=== PATIENT | female | born 1955 | race African-American/Black ===

== ENCOUNTER 2016-04-27 21:34 | Emergency (ER) | payer OTHER ==
[~2016-04-27] VITALS: Ht 167.6 cm; Wt 77.3 kg
[~2016-04-27 21:34] MED LIST: ASPIR-LOW81 MG PO; CALCIUM CITRAT200 MG PO; COLACE100 MG PO; CYMBALTA60 MG PO; FOLIC ACID; LORTAB 5/500 501 TAB PO; METHOTREXA2.5 MG/TAB PO; METHOTREXA50 MG/2 ML IM; NORCO 325 MG-51 TAB PO; PEPCID 20MG TAB20 MG PO; PHENERGAN 25 TA25 MG PO; PLAQUENIL; TIAZAC360 MG PO; ZESTRIL; ZESTRIL 10MG10 MG PO
[2016-04-27 21:36] VITALS: BP 156/108; TEMP 98.1
[2016-04-27 22:16] LABS: BASO % 0.2 % (0.0-2.0); EOS # 0.1 (0.0-0.7); EOS % 0.4 % (0-4.0); GRAN # 9.6 (1.4-6.5); GRAN % 80.3 % (42.2-75.2); HEMATOCRIT 37.8 % (37.0-47.0); HEMOGLOBIN 13.6 g/dl (12.5-16.0); LYMPH # 1.5 (1.2-3.4); LYMPH % 12.5 % (20.0-51.0); MEAN CELL VOLUME 85 fl (80.0-100.0); MEAN CORPUSCULAR HEMOGLOBIN 31 pg (27.0-31.0); MEAN CORPUSCULAR HGB CONC 36 g/dl (33.0-37.0); MEAN PLATELET VOLUME 9.7 fl (7.4-10.4); MONO # 0.8 (0.1-0.6); MONO % 6.3 % (1.7-9.3); PLATELET COUNT 227 K/mm3 (130-400); RED BLOOD COUNT 4.44 M/mm3 (4.10-5.30); REDCELL DISTRIBUTION WIDTH-CV 14.4 % (11.5-14.5); WHITE BLOOD COUNT 11.9 K/mm3 (4.8-10.8)
[2016-04-27 22:26] LABS: ADJUSTED CALCIUM 9.6 mg/dL (8.4-10.2); ALANINE AMINOTRANSFERASE 34 U/L (9-52); ALBUMIN 4.6 gm/dL (3.5-5.0); ALKALINE PHOSPHATASE 77 U/L (50-136); ANION GAP 12 mmol/L (7-16); BILIRUBIN,TOTAL 0.9 mg/dL (0.0-1.0); BLOOD UREA NITROGEN 16 mg/dL (7-17); CALCIUM 10.1 mg/dL (8.4-10.2); CARBON DIOXIDE 26 mmol/L (22-30); CHLORIDE 103 mmol/L (98-107); CREATININE, serum 0.84 mg/dL (0.52-1.25); GLUCOSE 143 mg/dL (74-106); LIPASE 87 U/L (23-300); POTASSIUM 4.2 mmol/L (3.4-5.0); SODIUM 141 mmol/L (137-145); TOTAL PROTEIN 9.4 gm/dL (6.4-8.2)
[2016-04-27 22:35] LABS: PH 5 (5-8); SQUAMOUS EPITHELIAL None Seen /hpf; URINE APPEARANCE Hazy; URINE BACTERIA None Seen /hpf; URINE BILIRUBIN Negative (NEGATIVE); URINE BLOOD Negative (NEGATIVE); URINE COLOR Yellow; URINE GLUCOSE Negative (NEGATIVE); URINE KETONE Trace (NEGATIVE); URINE RBC 0-2 /hpf; URINE UROBILINOGEN Negative (NEGATIVE); URINE WBC 0-2 /hpf
[2016-04-27 22:38] LABS: TROPONIN-I < 0.012 ng/mL (0.000-0.034)
[2016-04-28] MEDS ORDERED: PHENERGAN 25 TA25 MG PO (00:18)
[2016-04-28 00:33] VITALS: PULSE 82
== END 2016-04-28 00:34 | disposition home or self-care (01) ==
LOC: COL.ER 21:34
PROVIDERS: Physician Assistant
DX: K52.9 Noninfective gastroenteritis and colitis, unspecified (principal)
CPT/HCPCS: J2270; J2550; J7030; Q9967

== ENCOUNTER 2016-08-09 06:44 | Emergency (ER) | payer OTHER ==
[~2016-08-09] VITALS: Ht 167.6 cm; Wt 74.5 kg
[2016-08-09 06:46] VITALS: PULSE 93; TEMP 98
[2016-08-09] MEDS ORDERED: MULTIVITAMIN1 CTB PO (06:51)
[2016-08-09] MEDS ORDERED: VITAMIN D1000 IU PO (06:51)
[2016-08-09 07:46] LABS: BASO % 0.1 % (0.0-2.0); EOS % 0.3 % (0-4.0); GRAN # 4.4 (1.4-6.5); GRAN % 65.4 % (42.2-75.2); HEMOGLOBIN 12.3 g/dl (12.5-16.0); LYMPH # 1.7 (1.2-3.4); LYMPH % 25.9 % (20.0-51.0); MEAN CELL VOLUME 84 fl (80.0-100.0); MEAN CORPUSCULAR HEMOGLOBIN 31 pg (27.0-31.0); MEAN CORPUSCULAR HGB CONC 36 g/dl (33.0-37.0); MEAN PLATELET VOLUME 10.2 fl (7.4-10.4); MONO # 0.5 (0.1-0.6); PLATELET COUNT 224 K/mm3 (130-400); RED BLOOD COUNT 4.03 M/mm3 (4.10-5.30); REDCELL DISTRIBUTION WIDTH-CV 15.3 % (11.5-14.5); WHITE BLOOD COUNT 6.7 K/mm3 (4.8-10.8)
[2016-08-09 07:50] LABS: PH 5 (5-8); SQUAMOUS EPITHELIAL 0-2 /hpf; URINE APPEARANCE Hazy; URINE BACTERIA None Seen /hpf; URINE BILIRUBIN Negative (NEGATIVE); URINE BLOOD Negative (NEGATIVE); URINE COLOR Yellow; URINE GLUCOSE Negative (NEGATIVE); URINE KETONE Trace (NEGATIVE); URINE RBC 0-2 /hpf; URINE UROBILINOGEN Negative (NEGATIVE)
[2016-08-09 08:04] LABS: ADJUSTED CALCIUM 9.7 mg/dL (8.4-10.2); ALANINE AMINOTRANSFERASE 27 U/L (9-52); ALBUMIN 4.6 gm/dL (3.5-5.0); ALKALINE PHOSPHATASE 74 U/L (50-136); ANION GAP 14 mmol/L (7-16); BLOOD UREA NITROGEN 12 mg/dL (7-17); C-REACTIVE PROTEIN 0.8 mg/dL (0.0-0.9); CALCIUM 10.2 mg/dL (8.4-10.2); CARBON DIOXIDE 27 mmol/L (22-30); CHLORIDE 102 mmol/L (98-107); CREATININE, serum 0.75 mg/dL (0.52-1.25); GLUCOSE 100 mg/dL (74-106); LIPASE 78 U/L (23-300); SODIUM 143 mmol/L (137-145)
[2016-08-09 08:13] LABS: TROPONIN-I < 0.012 ng/mL (0.000-0.034)
[2016-08-09] MEDS ORDERED: ZOFRAN ODT4 MG PO (10:06)
[2016-08-09] MEDS ORDERED: PHENERGAN 25 TA25 MG PO (10:06)
[2016-08-09 10:33] VITALS: BP 137/90
== END 2016-08-09 10:34 | disposition home or self-care (01) ==
LOC: COL.ER 06:44
PROVIDERS: Emergency Medicine
DX: K52.9 Noninfective gastroenteritis and colitis, unspecified (principal); I10 Essential (primary) hypertension
CPT/HCPCS: J2405; J2550; J3010; J7030; Q9967

== ENCOUNTER 2017-05-20 15:42 | Emergency (ER) | payer OTHER ==
[~2017-05-20] VITALS: Ht 167.6 cm; Wt 81.8 kg
[~2017-05-20 15:42] MED LIST changes: +MULTIVITAMIN1 CTB PO; +VITAMIN D1000 IU PO; +ZOFRAN ODT4 MG PO
[2017-05-20 15:45] VITALS: TEMP 98.7
[2017-05-20 17:26] LABS: ALANINE AMINOTRANSFERASE 36 U/L (9-52); ALBUMIN 4.5 gm/dL (3.5-5.0); ALKALINE PHOSPHATASE 82 U/L (50-136); ANION GAP 8 mmol/L (7-16); AST,SGOT 29 U/L (15-37); BILIRUBIN,TOTAL 0.3 mg/dL (0.0-1.0); BLOOD UREA NITROGEN 11 mg/dL (7-17); C-REACTIVE PROTEIN 0.9 mg/dL (0.0-0.9); CALCIUM 9.9 mg/dL (8.4-10.2); CARBON DIOXIDE 29 mmol/L (22-30); CHLORIDE 104 mmol/L (98-107); GLUCOSE 86 mg/dL (74-106); LIPASE 142 U/L (23-300); POTASSIUM 3.8 mmol/L (3.4-5.0); SODIUM 141 mmol/L (137-145); TOTAL PROTEIN 8.9 gm/dL (6.4-8.2)
[2017-05-20 17:37] LABS: TROPONIN-I < 0.012 ng/mL (0.000-0.034)
[2017-05-20 18:00] VITALS: BP 137/88
[2017-05-20 18:09] LABS: BASO % 0.2 % (0.0-2.0); EOS # 0.1 (0.0-0.7); EOS % 1.1 % (0-4.0); GRAN # 4.1 (1.4-6.5); GRAN % 63.8 % (42.2-75.2); LYMPH # 1.6 (1.2-3.4); LYMPH % 24.9 % (20.0-51.0); MEAN CELL VOLUME 86 fl (80.0-100.0); MEAN CORPUSCULAR HGB CONC 36 g/dl (33.0-37.0); MEAN PLATELET VOLUME 10.2 fl (7.4-10.4); MONO # 0.6 (0.1-0.6); MONO % 9.5 % (1.7-9.3); PLATELET COUNT 204 K/mm3 (130-400); RED BLOOD COUNT 3.73 M/mm3 (4.10-5.30); REDCELL DISTRIBUTION WIDTH-CV 15.1 % (11.5-14.5)
[2017-05-20 18:10] LABS: HEMATOCRIT 31.9 % (37.0-47.0); HEMOGLOBIN 11.4 g/dl (12.5-16.0); MEAN CORPUSCULAR HEMOGLOBIN 31 pg (27.0-31.0)
[2017-05-20 20:27] VITALS: PULSE 91
== END 2017-05-20 20:31 | disposition home or self-care (01) ==
LOC: COL.ER 15:42
PROVIDERS: Emergency Medicine
DX: J40 Bronchitis, not specified as acute or chronic (principal); I10 Essential (primary) hypertension; K21.9 Gastro-esophageal reflux disease without esophagitis; Z87.39 Personal history of other diseases of the musculoskeletal system and connective tissue
CPT/HCPCS: J7050; Q9967

== ENCOUNTER → 2017-08-06 | Outpatient (CLI) | payer OTHER | LOC: COL.RAD 09:27 | DX: D47.2 Monoclonal gammopathy (principal) ==

== ENCOUNTER 2017-09-30 22:02 | Emergency (ER) | payer OTHER ==
[~2017-09-30] VITALS: Ht 167.6 cm; Wt 77.3 kg
[2017-09-30 22:14] VITALS: TEMP 98.5
[2017-09-30] MEDS ORDERED: ZYRTEC 10MG10 MG PO (23:49)
[2017-09-30] MEDS ORDERED: FOLIC ACID0.4 MG PO (23:50)
[2017-09-30] MEDS ORDERED: PRAVACHOL80 MG PO (23:50)
[2017-10-01 00:36] LABS: BASO % 0.1 % (0.0-2.0); EOS % 0.1 % (0-4.0); GRAN # 7.8 (1.4-6.5); GRAN % 82.1 % (42.2-75.2); HEMATOCRIT 34.6 % (37.0-47.0); HEMOGLOBIN 12.8 g/dl (12.5-16.0); LYMPH % 10.5 % (20.0-51.0); MEAN CELL VOLUME 85 fl (80.0-100.0); MEAN CORPUSCULAR HEMOGLOBIN 31 pg (27.0-31.0); MEAN CORPUSCULAR HGB CONC 37 g/dl (33.0-37.0); MEAN PLATELET VOLUME 9.4 fl (7.4-10.4); MONO # 0.7 (0.1-0.6); PLATELET COUNT 175 K/mm3 (130-400); RED BLOOD COUNT 4.07 M/mm3 (4.10-5.30); REDCELL DISTRIBUTION WIDTH-CV 15.5 % (11.5-14.5)
[2017-10-01 00:48] LABS: ALBUMIN 4.2 gm/dL (3.5-5.0); BILIRUBIN,TOTAL 0.4 mg/dL (0.0-1.0); C-REACTIVE PROTEIN 0.6 mg/dL (0.0-0.9); CALCIUM 9.5 mg/dL (8.4-10.2); CREATININE, serum 0.75 mg/dL (0.52-1.25); POTASSIUM 3.9 mmol/L (3.4-5.0); TOTAL PROTEIN 9.4 gm/dL (6.4-8.2)
[2017-10-01] MEDS ORDERED: FLAGYL500 MG PO (02:09)
[2017-10-01] MEDS ORDERED: NORCO 325 MG-51 TAB PO (02:09)
[2017-10-01] MEDS ORDERED: CIPRO 500MG TA500 MG PO (02:09)
[2017-10-01] MEDS ORDERED: ZOFRAN 4MG T4 MG/TAB PO (02:09)
[2017-10-01 03:32] VITALS: BP 118/70; PULSE 79
== END 2017-10-01 03:34 | disposition home or self-care (01) ==
LOC: COL.ER 22:02
PROVIDERS: Emergency Medicine
DX: K52.9 Noninfective gastroenteritis and colitis, unspecified (principal); Z90.49 Acquired absence of other specified parts of digestive tract
CPT/HCPCS: J1170; J2550

== ENCOUNTER 2018-02-09 17:45 | Emergency (ER) | payer OTHER ==
[~2018-02-09] VITALS: Ht 167.6 cm; Wt 85.9 kg
[~2018-02-09 17:45] MED LIST changes: +CIPRO 500MG TA500 MG PO; +FLAGYL500 MG PO; +FOLIC ACID0.4 MG PO; +PRAVACHOL80 MG PO; +ZOFRAN 4MG T4 MG/TAB PO; +ZYRTEC 10MG10 MG PO
[2018-02-09 17:52] VITALS: TEMP 98.6
[2018-02-09 18:18] LABS: COLLECTION METHOD CLEAN CATCH
[2018-02-09 18:25] LABS: MUCOUS Present /lpf; PH 7 (5-8); URINE APPEARANCE Clear; URINE BACTERIA None Seen /hpf; URINE BILIRUBIN Negative (NEGATIVE); URINE BLOOD Negative (NEGATIVE); URINE COLOR Yellow; URINE GLUCOSE Negative (NEGATIVE); URINE KETONE Negative (NEGATIVE); URINE LEUKOCYTE ESTERASE Negative (NEGATIVE); URINE NITRATE Negative (NEGATIVE); URINE PROTEIN(semi-quant) 1+ (NEGATIVE); URINE RBC 0-2 /hpf; URINE UROBILINOGEN >=4.0 mg/dL (NEGATIVE)
[2018-02-09 18:40] LABS: BASO % 0.1 % (0.0-2.0); EOS % 0.6 % (0-4.0); GRAN # 4.2 (1.4-6.5); GRAN % 63.1 % (42.2-75.2); HEMATOCRIT 33.6 % (37.0-47.0); LYMPH # 1.5 (1.2-3.4); LYMPH % 22.7 % (20.0-51.0); MEAN CELL VOLUME 86 fl (80.0-100.0); MEAN CORPUSCULAR HEMOGLOBIN 31 pg (27.0-31.0); MEAN CORPUSCULAR HGB CONC 36 g/dl (33.0-37.0); MONO # 0.9 (0.1-0.6); MONO % 13.2 % (1.7-9.3); PLATELET COUNT 172 K/mm3 (130-400); RED BLOOD COUNT 3.91 M/mm3 (4.10-5.30)
[2018-02-09 18:51] LABS: ALBUMIN 4.4 gm/dL (3.5-5.0); BILIRUBIN,TOTAL 0.4 mg/dL (0.0-1.0); C-REACTIVE PROTEIN 0.7 mg/dL (0.0-0.9); CALCIUM 9.6 mg/dL (8.4-10.2); CREATININE, serum 0.76 mg/dL (0.52-1.25); POTASSIUM 3.9 mmol/L (3.4-5.0); TOTAL PROTEIN 8.7 gm/dL (6.4-8.2)
[2018-02-09] MEDS ORDERED: TUSS PO (19:13)
[2018-02-09 19:23] VITALS: BP 137/91; PULSE 88
== END 2018-02-09 19:25 | disposition home or self-care (01) ==
LOC: COL.ER 17:45
PROVIDERS: Physician Assistant
DX: R10.31 Right lower quadrant pain (principal); R05 Cough; I10 Essential (primary) hypertension; E78.5 Hyperlipidemia, unspecified; Z87.2 Personal history of diseases of the skin and subcutaneous tissue
CPT/HCPCS: J2405; J3010

== ENCOUNTER → 2018-07-13 | Outpatient (CLI) | payer OTHER ==
[~2018-07-13] MED LIST changes: +TUSS PO
== END ==
LOC: COL.RAD 14:49
DX: I10 Essential (primary) hypertension (principal)

== ENCOUNTER 2019-02-14 08:11 | Inpatient (IN) | payer OTHER ==
[2019-02-14] VITALS (84 sets, daily range): BP systolic 99–114; BP diastolic 49–76; PULSE 90–120; TEMP 98.3–99.9; O2SAT 78–100
[~2019-02-14] VITALS: Ht 167.6 cm; Wt 73.7 kg
[2019-02-14 08:38] LABS: BASO % 0.2 % (0.0-2.0); EOS # 0.1 (0.0-0.7); EOS % 1.1 % (0-4.0); GRAN # 3.4 (1.4-6.5); GRAN % 72.7 % (42.2-75.2); LYMPH % 21.1 % (20.0-51.0); MEAN CELL VOLUME 90 fl (80.0-100.0); MEAN CORPUSCULAR HGB CONC 36 g/dl (33.0-37.0); MEAN PLATELET VOLUME 10.5 fl (7.4-10.4); MONO # 0.2 (0.1-0.6); MONO % 4.5 % (1.7-9.3); PLATELET COUNT 127 K/mm3 (130-400); RED BLOOD COUNT 2.86 M/mm3 (4.10-5.30); REDCELL DISTRIBUTION WIDTH-CV 15.1 % (11.5-14.5)
[2019-02-14 08:42] LABS: HEMATOCRIT 25.7 % (37.0-47.0); HEMOGLOBIN 9.2 g/dl (12.5-16.0); MEAN CORPUSCULAR HEMOGLOBIN 32 pg (27.0-31.0)
[2019-02-14 08:49] LABS: ALANINE AMINOTRANSFERASE 25 U/L (9-52); ALBUMIN 4.4 gm/dL (3.5-5.0); ALKALINE PHOSPHATASE 63 U/L (50-136); ANION GAP 9 mmol/L (7-16); AST,SGOT 53 U/L (15-37); BILIRUBIN,TOTAL 0.3 mg/dL (0.0-1.0); BLOOD UREA NITROGEN 49 mg/dL (7-17); CALCIUM 9.8 mg/dL (8.4-10.2); CARBON DIOXIDE 26 mmol/L (22-30); CHLORIDE 101 mmol/L (98-107); CREATININE, serum 2.22 (0.52-1.25); GLUCOSE 55 mg/dL (74-106); POTASSIUM 4.2 mmol/L (3.4-5.0); SODIUM 137 mmol/L (137-145); TOTAL PROTEIN 8.6 gm/dL (6.4-8.2)
[2019-02-14] MEDS ORDERED: ZOVIRAX400 MG PO (08:58)
[2019-02-14] MEDS ORDERED: ASPIRIN 81M81 MG/TA2 PO (08:59)
[2019-02-14 09:00] LABS: TROPONIN-I < 0.012 ng/mL (0.000-0.035)
[2019-02-14] MEDS ORDERED: DECADRON 4MG TAB4 MG PO (09:00)
[2019-02-14] MEDS ORDERED: REVLIMID25 MG PO (09:01)
[2019-02-14] MEDS ORDERED: CALCIUM 600-D 61 TAB PO (09:02)
[2019-02-14] MEDS ORDERED: ZYLOPRIM 300MG300 MG PO (09:02)
[2019-02-14] MEDS ORDERED: TESSALON P100 MG/CAP PO (09:05)
[2019-02-14] MEDS ORDERED: ZYRTEC 10MG10 MG PO (09:05)
[2019-02-14] MEDS ORDERED: FERROUS SULFATE PO (09:07)
[2019-02-14 09:18] LABS: COLLECTION METHOD CLEAN CATCH
[2019-02-14 09:40] LABS: MUCOUS Present /lpf; PH 5 (5-8); URINE APPEARANCE Clear; URINE BACTERIA Rare /hpf; URINE BILIRUBIN Negative (NEGATIVE); URINE BLOOD Negative (NEGATIVE); URINE COLOR Yellow; URINE GLUCOSE Negative (NEGATIVE); URINE KETONE Negative (NEGATIVE); URINE LEUKOCYTE ESTERASE 1+ (NEGATIVE); URINE NITRATE Negative (NEGATIVE); URINE PROTEIN(semi-quant) Negative (NEGATIVE); URINE UROBILINOGEN Negative (NEGATIVE)
--- NOTE | 2019-02-14 12:36 | NUR ---
Pt up to room 317, 5 page, med rec, allergies and pharmacy completed. Pt laying in bed with at bedside. Pt A&O, lung sounds clear, heart RRR, bowel sounds present, pulses strong bilaterally. Pt denies SOB, is on room air, denies N/V/D, chest pain palpitations. Pt states she has some dizziness. Pt denies pain "worth complaining about". Pt started chemo 02/10/19 and today is the first day she "didn't feel good". Pt ambulatory in room. No other concerns voiced at this time.
--- NOTE | 2019-02-14 15:12 | NUR ---
Pt ordered for Glucose check now, this nurse checking BS as JAREN Elias was walking in for assessment. BS resulted 25. Pt is A&O, talking w/ staff. JAREN Elias grabbed juice and crackers. Pt drank 3 juices. BS rechecked 3 more times, resulting 12, LO (too low to read), and LO. Verbal order D50 syringe ordered, administered 25 ml, BS rechecked 43. Stat blood order for glucose check ordered. Pt getting labs drawn at this time. Will recheck blood sugar in 15 min. Pt has appeared asymptomatic. Discussed POC w/ JAREN Elias.
--- NOTE | 2019-02-14 15:35 | NUR ---
BS rechecked, resulting 46. D5 fluids started at 50ml/hr. Pt sitting in bed, eating, A&O, having conversation w/ staff.
--- NOTE | 2019-02-14 16:08 | NUR ---
Pt BS rechecked, 57. Pt has had 5 juices, turkey sandwich, fruit. IVF running w/ no complications. JAREN Elias updated on pt condition. Will recheck BS in 30 min.
--- NOTE | 2019-02-14 16:52 | NUR ---
Pt BS checked, resulting 50, D5 running at 50ml/hr. JAREN Elias notified. Will consult w/ Hospitalist on POC.
--- NOTE | 2019-02-14 18:20 | NUR ---
182: PT ARRIVIED TO ICU RM 2. 183: PT BS 46 - FOLLOWING HYPOGYCEMIC PROTOCOL 1831: REPORT RECEIVED FROM MADELINE CONNOR 1837: PT STATES SHE IS NOT HUNGRY, BUT RATHER FULL. PT STATES SHE WILL TRY TO EAT SOME MORE FOOD.
--- NOTE | 2019-02-14 18:31 | NUR ---
Pt being transferred to [facility] room 2. Escorted via bed by MADELINE Hui. Report called to MADELINE Dey. D10 at 50 ml/hr started prior to departure in [facility].
--- NOTE | 2019-02-14 18:31 | NUR ---
1831: BS 46 INITIATED HYPOGLYCEMIC PROTOCOL PT ADMINISTERED D50
--- NOTE | 2019-02-14 19:10 | NUR ---
BEDSIDE REPORT GIVEN TO MADELINE WILLIS.
--- NOTE | 2019-02-14 21:51 | NUR ---
Patient resting in bed; accu check 120. Denies any pain, dizziness. or shortness of breath. Only reports feeling "tired". Ambulated to bathroom with standby assist only. No concerns at this time; will continue to monitor.
--- NOTE | 2019-02-14 22:00 | NUR ---
Temp noted to be 101.0 . Notified hospitalist and new orders received; see EMAR.
[2019-02-15] VITALS (89 sets, daily range): BP systolic 85–112; BP diastolic 51–82; PULSE 81–110; TEMP 97.7–100.5; O2SAT 99–100
--- NOTE | 2019-02-15 00:45 | NUR ---
Resting in bed with eyes shut; no complaints at this time.
--- NOTE | 2019-02-15 04:07 | NUR ---
0250: Patient received from ICu. A/O x 4. No complaints or concerns. Denies pain or discomfort. See flowsheet for fvs obtained with hypotension and tachycardia. blood glucose 123. Patient Denies feeling dizzy, lightheaded, or weak. States "I don't really even feel sick". Skin warm and moist to touch. Telemetry indicates sinus tachycardia. Chart reviewed. Rocephin given for suspected UTI. urine and blood cultures pending. Kari GARDINER notified. Orders received for NS 1000ml bolus over 1 hr. to continue Dextrose infusion during bolus. Patient updated on plan of care and reason, agrees with plan of care and has no questions or concerns after discussion.
--- NOTE | 2019-02-15 04:15 | NUR ---
0405: Kari Nesbitt WAFER FABRICATION TECHNICIAN notified of blood glucose and FVS obtained at this time. No new orders received. To continue to monitor and finish NS bolus.
[2019-02-15] MEDS ORDERED: ZOFRAN8 MG PO (06:43)
[2019-02-15 07:29] LABS: MEAN CELL VOLUME 91 fl (80.0-100.0); MEAN CORPUSCULAR HGB CONC 36 g/dl (33.0-37.0); MEAN PLATELET VOLUME 10.9 fl (7.4-10.4); PLATELET COUNT 97 K/mm3 (130-400); RED BLOOD COUNT 2.66 M/mm3 (4.10-5.30); REDCELL DISTRIBUTION WIDTH-CV 15.6 % (11.5-14.5)
[2019-02-15 07:30] LABS: HEMATOCRIT 24.3 % (37.0-47.0); HEMOGLOBIN 8.7 g/dl (12.5-16.0); MEAN CORPUSCULAR HEMOGLOBIN 33 pg (27.0-31.0)
[2019-02-15 07:57] LABS: ALANINE AMINOTRANSFERASE 22 U/L (9-52); ALBUMIN 3.5 gm/dL (3.5-5.0); ALKALINE PHOSPHATASE 54 U/L (50-136); ANION GAP 5 mmol/L (7-16); AST,SGOT 23 U/L (15-37); BILIRUBIN,TOTAL 0.1 mg/dL (0.0-1.0); BLOOD UREA NITROGEN 20 mg/dL (7-17); CALCIUM 8.9 mg/dL (8.4-10.2); CARBON DIOXIDE 26 mmol/L (22-30); CHLORIDE 109 mmol/L (98-107); CREATININE, serum 1.13 (0.52-1.25); GLUCOSE 127 mg/dL (74-106); POTASSIUM 4.1 mmol/L (3.4-5.0); SODIUM 140 mmol/L (137-145); TOTAL PROTEIN 7.3 gm/dL (6.4-8.2)
[2019-02-15 08:06] LABS: TROPONIN-I < 0.012 ng/mL (0.000-0.035)
--- NOTE | 2019-02-15 09:09 | NUR ---
SW met with the patient to discuss discharge plan. The patient lives in [place] with her , Neel (ph#[phone]). She reports independence with ADLs and does not have any DME. The patient's PCP is Dr. Baires at [facility] and she also receives her medications at [facility]. She reports no difficulties obtaining her meds. The patient does not have advanced directives in EMR, but she states that she does have them completed and at home. She states her DPOA-HC is her . The patient plans to return home with her upon discharge. No additional needs at this time, but SW to continue to follow.
[2019-02-15 09:40] LABS: BAND 1 % (0-10); NEUTROPHILS 49 % (42.0-75.2)
[2019-02-15 09:41] LABS: PLATELET ESTIMATE DECREASED (NORMAL); TARGET CELLS 2+
[2019-02-15 09:43] LABS: ANISOCYTOSIS 1+; POIKILOCYTOSIS 1+
[2019-02-15 10:14] LABS: LYMPHOCYTE 43 % (20.0-51.0)
--- NOTE | 2019-02-15 12:01 | NUR ---
Initial visit; Patient thanked Flight Manager for looking in on her and keeping her in Flight Manager's prayers.
[2019-02-16 00:01] VITALS: BP 111/65; PULSE 89; TEMP 98.4
[2019-02-16 01:51] LABS: C-PEPTIDE,SERUM 6.68 ng/mL (0.80-3.90)
[2019-02-16 04:01] VITALS: BP 111/67; PULSE 100; TEMP 98.2
[2019-02-16 07:02] LABS: MEAN CELL VOLUME 92 fl (80.0-100.0); MEAN CORPUSCULAR HGB CONC 35 g/dl (33.0-37.0); MEAN PLATELET VOLUME 11.5 fl (7.4-10.4); PLATELET COUNT 81 K/mm3 (130-400); RED BLOOD COUNT 2.57 M/mm3 (4.10-5.30); REDCELL DISTRIBUTION WIDTH-CV 15.8 % (11.5-14.5)
[2019-02-16 07:08] LABS: CALCIUM 9.1 mg/dL (8.4-10.2); CREATININE, serum 1.06 (0.52-1.25); POTASSIUM 4.5 mmol/L (3.4-5.0)
[2019-02-16 07:09] LABS: HEMATOCRIT 23.6 % (37.0-47.0); HEMOGLOBIN 8.3 g/dl (12.5-16.0); MEAN CORPUSCULAR HEMOGLOBIN 32 pg (27.0-31.0)
[2019-02-16 07:49] VITALS: BP 125/78; PULSE 81; TEMP 97.8
[2019-02-16 07:53] LABS: EOSINOPHIL 4 % (0-4); HYPOCHROMIA 2+; LYMPHOCYTE 35 % (20.0-51.0); NEUTROPHILS 60 % (42.0-75.2); PLATELET ESTIMATE DECREASED (NORMAL); SCHISTOCYTES 1+; TARGET CELLS 1+
[2019-02-16 08:01] LABS: PATHOLOGY DIFF REVIEW OK
--- NOTE | 2019-02-16 09:00 | NUR ---
IV SITE LOST THIS AM, WAS LEAKING. IV REMOVED WITHOUT ISSUE. WILL INQUIRE ABOUT THE NEED TO RESTART IV PRIOR TO ATTEMPTING.
[2019-02-16 11:08] VITALS: BP 122/72; PULSE 89; TEMP 97.9
[2019-02-16] MEDS ORDERED: OMNICEF 300MG300 MG PO (11:10)
[2019-02-16] MEDS ORDERED: GLUCOSE TEST ST1 DEV MC (11:12)
[2019-02-16] MEDS ORDERED: FREESTYLE PREC1 EAC5 MC (11:12)
--- NOTE | 2019-02-16 13:00 | NUR ---
PT DISCHARGE EDUCATION WAS PROVIDED. PT RECIEVED HOME MEDS FROM PHARMACY. TELE REMOVED. STATED THAT SHE WAS WAITING TO HEAR BACK FROM TO TAKE HER HOME, INFORMED PT THAT SHE COULD STAY IN ROOM AND WAIT THAT WOULD BE FINE AND THAT SHE DIDNT NEED TO WAIT BY THE FRONT DOORS SHE THOUGHT. ALL QUESTIONS ADDRESSED THIS AM WITH PROVIDER AND GRADES 9 THRU 12 VISITING TEACHER.
--- NOTE | 2019-02-16 17:00 | NUR ---
PT WAS ESCORTED OUT OF FACILITY BY INVENTORY TAKER AT THIS TIME. WAS HERE TO PROVIDE A RIDE HOME.
== END 2019-02-16 17:00 | disposition home or self-care (01) | DRG 641 ==
LOC: COL.ER 08:11 → MEDICAL 09:37 → ICU 17:15 → MEDICAL 02-15 03:44
PROVIDERS: Physician Assistant; ADMIT Student in an Organized Health Care Education/Training Program
DX: E16.2 Hypoglycemia, unspecified (principal); C90.00 Multiple myeloma not having achieved remission; N17.9 Acute kidney failure, unspecified; D61.818 Other pancytopenia; N39.0 Urinary tract infection, site not specified; M32.9 Systemic lupus erythematosus, unspecified; T45.1X5A Adverse effect of antineoplastic and immunosuppressive drugs, initial encounter; I95.9 Hypotension, unspecified; I10 Essential (primary) hypertension; E78.5 Hyperlipidemia, unspecified; D64.9 Anemia, unspecified; R05 Cough; R55 Syncope and collapse; Z79.82 Long term (current) use of aspirin; Z90.710 Acquired absence of both cervix and uterus; Z88.2 Allergy status to sulfonamides
CPT/HCPCS: 99223-AI; 99232-AI; 99239; A4216; J0696; J7030; J7070

== ENCOUNTER 2019-02-17 15:33 | Inpatient (IN) | payer OTHER ==
[~2019-02-17] VITALS: Ht 167.6 cm; Wt 73.9 kg
[~2019-02-17 15:33] MED LIST changes: +ASPIRIN 81M81 MG/TA2 PO; +CALCIUM 600-D 61 TAB PO; +DECADRON 4MG TAB4 MG PO; +FERROUS SULFATE PO; +FREESTYLE PREC1 EAC5 MC; +GLUCOSE TEST ST1 DEV MC; +OMNICEF 300MG300 MG PO; +REVLIMID25 MG PO; +TESSALON P100 MG/CAP PO; +ZOFRAN8 MG PO; +ZOVIRAX400 MG PO; +ZYLOPRIM 300MG300 MG PO
[2019-02-17 16:56] LABS: MEAN CELL VOLUME 91 fl (80.0-100.0); MEAN CORPUSCULAR HGB CONC 35 g/dl (33.0-37.0); MEAN PLATELET VOLUME 10.9 fl (7.4-10.4); PLATELET COUNT 81 K/mm3 (130-400); RED BLOOD COUNT 3.08 M/mm3 (4.10-5.30); REDCELL DISTRIBUTION WIDTH-CV 15.9 % (11.5-14.5)
[2019-02-17 17:01] LABS: ALBUMIN 4.6 gm/dL (3.5-5.0); BILIRUBIN,TOTAL 0.2 mg/dL (0.0-1.0); CALCIUM 10.3 mg/dL (8.4-10.2); CREATININE, serum 1.07 (0.52-1.25); POTASSIUM 4.5 mmol/L (3.4-5.0); TOTAL PROTEIN 9.2 gm/dL (6.4-8.2)
[2019-02-17 17:20] LABS: HEMOGLOBIN 9.9 g/dl (12.5-16.0); MEAN CORPUSCULAR HEMOGLOBIN 32 pg (27.0-31.0)
[2019-02-17 17:33] LABS: BAND 3 % (0-10); EOSINOPHIL 3 % (0-4); LYMPHOCYTE 13 % (20.0-51.0); METAMYELOCYTE 2 % (0-0); NEUTROPHILS 73 % (42.0-75.2); PLATELET ESTIMATE DECREASED (NORMAL)
[2019-02-17 17:34] LABS: ANISOCYTOSIS 1+; TARGET CELLS 2+
[2019-02-17 18:58] LABS: COLLECTION METHOD CLEAN CATCH
[2019-02-17 19:04] LABS: MUCOUS Present /lpf; PH 6 (5-8); URINE APPEARANCE Hazy; URINE BACTERIA None Seen /hpf; URINE BILIRUBIN Negative (NEGATIVE); URINE BLOOD Negative (NEGATIVE); URINE COLOR Yellow; URINE GLUCOSE Negative (NEGATIVE); URINE KETONE Negative (NEGATIVE); URINE LEUKOCYTE ESTERASE Trace (NEGATIVE); URINE NITRATE Negative (NEGATIVE); URINE PROTEIN(semi-quant) Negative (NEGATIVE); URINE RBC 0-2 /hpf; URINE UROBILINOGEN Negative (NEGATIVE)
[2019-02-17 21:01] LABS: INR 1.4 (0.8-3.0); PROTHROMBIN TIME 16.9 SECONDS (9.7-12.8)
[2019-02-17 21:05] LABS: SALICYLATE < 1.0 mg/dL
[2019-02-17 21:18] LABS: TROPONIN-I < 0.012 ng/mL (0.000-0.035)
[2019-02-17 21:37] VITALS: BP 124/60; PULSE 108; TEMP 99.5
--- NOTE | 2019-02-17 21:45 | NUR ---
Admitted to room 357 from ER with fever, productive cough- HX multiple myloma, temp at this time 99.5, Up in room , steady on feet- understands we need a stool specimen and a sputum specimen, went out to get her some food- Kari GARDINER here talking with patient- IV fluids of NS at 250cc/hr, tele on, denies pain-states has a low back ache but no pain,,
[2019-02-17 23:52] VITALS: BP 109/56; PULSE 107; TEMP 99.4
[2019-02-18 03:42] VITALS: BP 120/66; PULSE 108; TEMP 102.1
--- NOTE | 2019-02-18 06:31 | NUR ---
Did have temp of 102.1 during the night- Tylenol given,, coughing- cough medicine given. Iv fluids of NS at 150cc/hr.
[2019-02-18 06:54] LABS: MEAN CELL VOLUME 91 fl (80.0-100.0); MEAN CORPUSCULAR HGB CONC 35 g/dl (33.0-37.0); PLATELET COUNT 78 K/mm3 (130-400); RED BLOOD COUNT 2.45 M/mm3 (4.10-5.30)
[2019-02-18 07:08] LABS: HEMOGLOBIN 7.8 g/dl (12.5-16.0); MEAN CORPUSCULAR HEMOGLOBIN 32 pg (27.0-31.0)
[2019-02-18 07:09] LABS: HEMATOCRIT 22.3 % (37.0-47.0)
[2019-02-18 07:09] LABS: ALBUMIN 3.2 gm/dL (3.5-5.0); BILIRUBIN,TOTAL 0.2 mg/dL (0.0-1.0); CALCIUM 7.9 mg/dL (8.4-10.2); CREATININE, serum 1.04 (0.52-1.25); POTASSIUM 3.9 mmol/L (3.4-5.0); TOTAL PROTEIN 6.7 gm/dL (6.4-8.2)
[2019-02-18 08:08] VITALS: BP 98/59; PULSE 45; TEMP 98.2
[2019-02-18 08:57] LABS: BAND 13 % (0-10); EOSINOPHIL 4 % (0-4); LYMPHOCYTE 16 % (20.0-51.0); METAMYELOCYTE 1 % (0-0); NEUTROPHILS 53 % (42.0-75.2)
[2019-02-18 08:58] LABS: HYPOCHROMIA 2+; TARGET CELLS 1+
[2019-02-18 08:59] LABS: ANISOCYTOSIS 2+
--- NOTE | 2019-02-18 10:26 | NUR ---
Patient alert and oriented, answers questions appropriately. See assessment. Lungs decreased in bases, clear in upper lobes. Chronic cough noted, states now has yellow sputum, although unable to produce any for culture at this time. States feels well and expresses desire to discharge to home today. No other c/o at this time.
--- NOTE | 2019-02-18 11:26 | NUR ---
Plan to return home with Neel or guerline . SW met with patient about dc, patient reports that she is cold and has recieved several blankets. Patient rpoerts that her pcp is Dr. Baires of [facility], where she also obtained medications. Patient reports that her will transport her home. Patient denies needing in home supports. SW will continue to follow for supports.
[2019-02-18 13:21] VITALS: BP 123/72; PULSE 99; TEMP 102.8
[2019-02-18 16:00] VITALS: BP 113/66; PULSE 66; TEMP 101.4
[2019-02-18 19:21] VITALS: BP 113/68; PULSE 98; TEMP 102.2
--- NOTE | 2019-02-18 20:30 | NUR ---
Initial shift assessment done- has temp 102, up walking around room, ST on Tele, Tylenol given as ordered, states did just have a soft/loose stool, Back to bed-teady on feet, Iv fluids of NS at 75cc/hr
[2019-02-18 23:44] VITALS: BP 111/57; PULSE 98; TEMP 99.7
[2019-02-19] VITALS (8 sets, daily range): BP systolic 107–155; BP diastolic 57–87; PULSE 80–133; TEMP 99.2–102.9
--- NOTE | 2019-02-19 06:01 | NUR ---
Slept for a few hours- temp 102.2 early on this shift - now 100.0,, was given tylenol twice tonight- Had a total of 2 loose stools during the night, cough medicine given once-
[2019-02-19 07:14] LABS: MEAN CELL VOLUME 90 fl (80.0-100.0); MEAN CORPUSCULAR HGB CONC 35 g/dl (33.0-37.0); MEAN PLATELET VOLUME 11.8 fl (7.4-10.4); PLATELET COUNT 82 K/mm3 (130-400); RED BLOOD COUNT 2.63 M/mm3 (4.10-5.30); REDCELL DISTRIBUTION WIDTH-CV 15.9 % (11.5-14.5)
[2019-02-19 07:20] LABS: HEMATOCRIT 23.7 % (37.0-47.0); HEMOGLOBIN 8.4 g/dl (12.5-16.0); MEAN CORPUSCULAR HEMOGLOBIN 32 pg (27.0-31.0)
[2019-02-19 07:26] LABS: ALBUMIN 3.1 gm/dL (3.5-5.0); BILIRUBIN,TOTAL 0.3 mg/dL (0.0-1.0); CREATININE, serum 0.98 (0.52-1.25); TOTAL PROTEIN 6.8 gm/dL (6.4-8.2)
--- NOTE | 2019-02-19 08:00 | NUR ---
Patient resting in bed. A&O. Denies pain and discomfort. IV CDI, fluids infusing. VSS. Oral temperature 99.7, patient stating that she "feels cold" Will continue to monitor. No further needs expressed from patient. Call light withn reach
[2019-02-19 08:22] LABS: BAND 24 % (0-10); EOSINOPHIL 4 % (0-4); LYMPHOCYTE 12 % (20.0-51.0); NEUTROPHILS 55 % (42.0-75.2)
[2019-02-19 08:23] LABS: ANISOCYTOSIS 2+; HYPOCHROMIA 3+; PLATELET ESTIMATE DECREASED (NORMAL); TARGET CELLS 1+
--- NOTE | 2019-02-19 13:56 | NUR ---
RT CALLED FOR PRN TX. PT ANXIOUS, TACHYPNEIC AND COUGHING. C/O SHORTNESS OF BREATH. 2 LPM NC STARTED POST RT TX. PT ARRIVED HELPING TO CALM PT. PT STATED SHE FELT A LITTLE BETTER. RN TO GIVE ROBITUSSIN.
--- NOTE | 2019-02-19 18:12 | NUR ---
Patient resting in bed. A&O. Denies pain and discomfort. WBG WNL. VSS no reported SOB. IV CDI, fluids infusing. Temperature decreasing after tylenol. Will continue to monitor. Contact precautions in place. No further needs expressed from patient. Call light within reach
--- NOTE | 2019-02-19 19:53 | NUR ---
Pt resting in bed. No acute distress noted. Pt denies pain at this time. Respirations even and unlabored. Lungs clear to auscultation. Pt coughs periodically but denies any sputum.Telemetry in place. HR is elevated but Heart sounds are normal. Abdomen soft, nontender. BS+. Temperature is 99.8 at this time. A&O. R H IV site with IVF infusing.
--- NOTE | 2019-02-19 20:20 | NUR ---
Telemetry called d/t pts HR being elevated in the 140s. Upon assessment, pt is coughing. Vital signs are stable except HR of 130. Blood sugar checked- 68. Pt is receiving D5NS via IV and is eating dinner. Pt reports haivng liquid BM prior to the coughing.
--- NOTE | 2019-02-19 20:39 | NUR ---
Dr Franks called to report patients increased HR and decreased blood sugar. Orders received to get a EKG and continue with current IVF.
--- NOTE | 2019-02-19 21:49 | NUR ---
Pt updated provided to Dr. Felix. No new orders received.
--- NOTE | 2019-02-19 22:50 | NUR ---
Pts temperature is elevated again. PRN Tylenol given. CBG 160.
--- NOTE | 2019-02-19 23:40 | NUR ---
Pts R H IV site infiltrated. New IV site started in .
[2019-02-20] VITALS (478 sets, daily range): BP systolic 101–187; BP diastolic 47–127; PULSE 91–135; TEMP 97.4–103.8; O2SAT 35–100
--- NOTE | 2019-02-20 03:15 | NUR ---
Pt up to bathroom. BM x1-loose. Pt is dyspneic with exertion. Upon returning to bed, scattered expiratory wheezes auscultated throughout lung macias. VSS with exception of elevated HR-125.
--- NOTE | 2019-02-20 07:00 | NUR ---
Pt resting this AM. Pt did not sleep very much last night. She was up several times to bathroom and coughing frequently. Blood sugar is stable this AM. Edema to R hand has decreased since last night.
[2019-02-20 07:13] LABS: HEMATOCRIT 23.2 % (37.0-47.0); HEMOGLOBIN 8.4 g/dl (12.5-16.0); MEAN CELL VOLUME 90 fl (80.0-100.0); MEAN CORPUSCULAR HEMOGLOBIN 32 pg (27.0-31.0); MEAN CORPUSCULAR HGB CONC 36 g/dl (33.0-37.0); MEAN PLATELET VOLUME 12.6 fl (7.4-10.4); PLATELET COUNT 87 K/mm3 (130-400); RED BLOOD COUNT 2.59 M/mm3 (4.10-5.30); REDCELL DISTRIBUTION WIDTH-CV 15.9 % (11.5-14.5)
[2019-02-20 07:20] LABS: ALBUMIN 3.7 gm/dL (3.5-5.0); BILIRUBIN,TOTAL 0.5 mg/dL (0.0-1.0); CALCIUM 8.2 mg/dL (8.4-10.2); CREATININE, serum 0.89 (0.52-1.25); POTASSIUM 4.5 mmol/L (3.4-5.0); TOTAL PROTEIN 7.8 gm/dL (6.4-8.2)
[2019-02-20 08:14] LABS: BAND 22 % (0-10); EOSINOPHIL 1 % (0-4); HYPOCHROMIA 2+; LYMPHOCYTE 12 % (20.0-51.0); NEUTROPHILS 56 % (42.0-75.2); TARGET CELLS 1+
--- NOTE | 2019-02-20 08:34 | NUR ---
PT HAS DYSPNEA WHILE SPEAKING
--- NOTE | 2019-02-20 10:32 | NUR ---
SW attended clinical rounds with the team. Patient to transfer to the ICU.
[2019-02-20 11:01] LABS: ARTERIAL BLD GAS O2 SATURATION 90.9 % (92-100); ARTERIAL BLD GAS TCO2 CT 19.9; ARTERIAL BLOOD GAS BASE EXCESS -3.9 (-2-2); ARTERIAL BLOOD GAS PCO2 26.7 mmHg (35-45); ARTERIAL BLOOD GAS PO2 58.2 mmHg (80-100); ARTERIAL BLOOD GAS pH 7.47 (7.35-7.45)
[2019-02-20 11:26] LABS: INR 1.7 (0.8-3.0); PROTHROMBIN TIME 20.3 SECONDS (9.7-12.8)
--- NOTE | 2019-02-20 12:00 | NUR ---
DR. MONTES GIVES ORDER TO CALL ANESTHESIA FOR INTUBATION. AWAITING HUSBANDS ARRIVAL.
--- NOTE | 2019-02-20 12:40 | NUR ---
PATIENT INTUBATED AT 1229 WITH 7.5 ET TUBE, 23 AT TEETH. \ 1230 RESTRAINTS APPLIED. VSS
--- NOTE | 2019-02-20 13:00 | NUR ---
AT APPROX 1140, PATIENT ARRIVES TO ICU. SHE IS TACHYPNEIC AND RESTLESS. DR. MONTES CALLED AND CALLED TO COME TO HOSPITAL SOON POSSIBLE.
--- NOTE | 2019-02-20 14:00 | NUR ---
VENT SETTING RATE 16, TV 450, PEEP 5, FIO2 50%
--- NOTE | 2019-02-20 14:17 | NUR ---
0900 entered patients room to perform assessment and administer medications. Patient is observed sitting on the side of the bed and is visibly tachypneic. Respirations are shallow and patient is making a high pitched grunting noise. She states she is very dizzy and could possibly pass out. Breakfast tray removed and patient was assisted back in bed with head elevated. VS obtained at this time. BP 147/81, O2 96%, HR 122, R 28 and temp is 103.8. Patient is shaking and continues to breathe shallowly. Complains of having a headache. PRN tylenol administered and patient wished to take other medications as well. Blood glucose was checked and was 143. Notified providers of increased respirations and temperature, no new orders received. Did go out of room with breakfast tray as patient stated she was through. She ate a few bites of pancake and drank 100 ml of orange juice. Did reassess vital signs at 0900, BP 145/87, O2 93%, temp 101.7, respirations 44, HR 134. Patient states her head is still hurting and she is actually starting to feel sick as she didn't "feel that bad" when she arrived. Did ascultate lung sounds, bilateral lower lobes are coarse, upper have expiratory wheezing and are diminished. She is heard to be grunting. Spoke withh provider again, they will be in to see her next. Dr. Franks assessing patient, spoke with her regarding code status and respiratory interventions. Sepsis protocol initiated and ordered medications/fluids were admnistred as ordered. Labs drawn, ABGs obtained, pulmonolgy notified. Was assisted to CT at 1135 and is to transfer to ICU after testing, pt was aware of this and had been notifying by text messaging. I did go with patient to CT, she became very diaphoretic after transfer to the CT table. She pulled off isolation gown and requested to take off her oxygen. Was encouraged to leave on but she did for her own comfort. Was assited to they laying position and then became anxious, reached for staff hands and had to be assisted to sitting again. She was explained how long the test would take and said she could handle the amount of time testing was necessary. Upon completion, she transferred back to the bed with assitance, energy level noted to be very poor. Required assistance to move to the middle of the bed and move up. Did sit up with head of bed highly elevated in a tripod position on the way to the ICU. Was taken to room #4. Stated she needed to urinate, wished to get up to the toilet but was encouraged to use a bed shrestha and did agree as she was becoming quite fatigued. Did have moderate amount of urine. Was provided with pericare and then assisted to ICU bed. Report given to Rosa.
--- NOTE | 2019-02-20 14:25 | NUR ---
OGT PLACEMENT VERIFIED FROM CXR. OGT PLACED TO LIS AT THIS TIME.
--- NOTE | 2019-02-20 15:04 | NUR ---
PT'S FINGERS AND HANDS EXTREMELY EDEMATOUS. I VOICED CONCERNS TO PT'S REGARDING THE PATIENT'S RINGS. AGREES THAT PT'S RINGS SHOULD BE REMOVED. PATIENT'S RINGS REMOVED WITH AT BEDSIDE AND GIVEN TO SAFE KEEPING. ALSO HAS PATIENT'S PHONE AND SAYS HE WILL TAKE PT'S PHONE HOME FOR SAFE KEEPING WELL.
[2019-02-20 15:47] LABS: ARTERIAL BLD GAS O2 SATURATION 98.9 % (92-100); ARTERIAL BLD GAS TCO2 CT 20.3; ARTERIAL BLOOD GAS BASE EXCESS -6.1 (-2-2); ARTERIAL BLOOD GAS HCO3 19.1 meq/L (22-26); ARTERIAL BLOOD GAS PCO2 36.9 mmHg (35-45); ARTERIAL BLOOD GAS pH 7.33 (7.35-7.45)
[2019-02-20 15:48] LABS: ARTERIAL BLOOD GAS PO2 245.4 mmHg (80-100)
--- NOTE | 2019-02-20 18:14 | NUR ---
NOTIFIED DR MOTNES OF PT'S BP DECLINING STEADILY OVER PAST 1.5-2 HOURS. MAP IS ABOVE 65 BUT SBP <90, DBP IS AROUND 60/70.
--- NOTE | 2019-02-20 18:49 | NUR ---
PT INTUBATED AT 1229; ETT PLACED AT 23 AT THE TEETH. MOVED TO 22 AT THE TEETH POST EXTUBATION PER CXR PER DIESEL SCOOP OPERATOR. BILATERAL BREATHSOUNDS, POSITIVE CAPNOGRAPHY NOTED.
[2019-02-20 21:00] LABS: TROPONIN-I 0.141 ng/mL (0.000-0.035)
--- NOTE | 2019-02-20 21:48 | NUR ---
NOTIFIED TERRANCE RN WITH [facility] REGARDING PTS TROPONIN LEVEL 0.141. STATES HE WILL NOTIFY ON-CALL PHYSICIAN.
--- NOTE | 2019-02-20 22:45 | NUR ---
NOTIFIED TERRANCE RN WITH [facility] REGARDING PT HAVING A BG OF 30 D50 GIVEN ONLY UP TO 34 SECOND AMP OF D50 GIVEN. RECHECK SHOWING 104. NOTIFIED DR GONZALEZ. ORDERS RECEIVED TO DO BMP AND FINGER STICK AT THE SAME TIME.
[2019-02-20 23:35] LABS: CREATININE, serum 0.8 (0.52-1.25); POTASSIUM 3.9 mmol/L (3.4-5.0)
[2019-02-21] VITALS (1295 sets, daily range): BP systolic 80–137; BP diastolic 50–90; PULSE 78–130; TEMP 99.1–103.2; O2SAT 84–100
--- NOTE | 2019-02-21 01:43 | NUR ---
0045 PT SPIKED A FEVER OF 102.5. TYLENOL GIVEN AND ICE PACKS PLACED 0130 PT BP DROPPED TO THE 80'S WITH MAP IN THE 50'S. LEVOPHED STARTED. TEMP COMING DOWN 101.6. 0142 TERRANCE RN WITH [facility] NOTIFIED OF THE ABOVE. STATES HE WILL RELAY TO DR. GONZALEZ. PT'S BP NOW 103/68. WILL CONTINUE TO MONITOR
--- NOTE | 2019-02-21 02:45 | NUR ---
NOTIFIED TERRANCE CORREA WITH [facility] OF PT'S VBG'S. INSTRUCTED TO GET PTS AM LABS AT AROUND 0300. LAB CALLED AN NOTIFIED.
[2019-02-21 03:08] LABS: MEAN CELL VOLUME 89 fl (80.0-100.0); MEAN CORPUSCULAR HGB CONC 37 g/dl (33.0-37.0); MEAN PLATELET VOLUME 11.7 fl (7.4-10.4); PLATELET COUNT 97 K/mm3 (130-400); RED BLOOD COUNT 2.19 M/mm3 (4.10-5.30)
[2019-02-21 03:13] LABS: HEMATOCRIT 19.4 % (37.0-47.0); HEMOGLOBIN 7.1 g/dl (12.5-16.0); MEAN CORPUSCULAR HEMOGLOBIN 32 pg (27.0-31.0)
[2019-02-21 03:21] LABS: INR 1.9 (0.8-3.0); PROTHROMBIN TIME 22.7 SECONDS (9.7-12.8)
[2019-02-21 03:25] LABS: ALBUMIN 2.5 gm/dL (3.5-5.0); BILIRUBIN,TOTAL 0.5 mg/dL (0.0-1.0); CALCIUM 6.9 mg/dL (8.4-10.2); CREATININE, serum 0.86 (0.52-1.25); MAGNESIUM 1.3 mg/dL (1.6-2.3); PHOSPHOROUS 1.8 mg/dL (2.5-4.5); POTASSIUM 3.9 mmol/L (3.4-5.0); TOTAL PROTEIN 5.7 gm/dL (6.4-8.2)
--- NOTE | 2019-02-21 03:39 | NUR ---
NOTIFIED TERRANCE CORREA WITH [facility] REGARDING AM LABS. STATES HE WILL NOTIFY . WILL CONTINUE TO MONITOR.
[2019-02-21 03:45] LABS: ANISOCYTOSIS 1+; BAND 27 % (0-10); BASOPHIL 1 % (0-2); EOSINOPHIL 1 % (0-4); LYMPHOCYTE 18 % (20.0-51.0); NEUTROPHILS 45 % (42.0-75.2); PLATELET ESTIMATE DECREASED (NORMAL)
[2019-02-21 03:46] LABS: TARGET CELLS 1+; TEAR DROP CELLS 1+
--- NOTE | 2019-02-21 04:15 | NUR ---
CALL PLACED TO PT'S YANY JONES AT [phone] TO OBTAIN BLOOD CONSENT. THERE WAS NO ANSWER. MESSAGE LEFT FOR HIM TO CALL BACK.
--- NOTE | 2019-02-21 04:55 | NUR ---
PT'S YANY RETURNED CALL. CONSENT FOR BLOOD TRANSFUSION RECEIVED WITH MANAGER PHILOSOPHY CASSIE.
[2019-02-21 05:18] LABS: ARTERIAL BLD GAS O2 SATURATION 98.1 % (92-100); ARTERIAL BLOOD GAS BASE EXCESS -2.7 (-2-2); ARTERIAL BLOOD GAS HCO3 21.9 meq/L (22-26); ARTERIAL BLOOD GAS PCO2 36.6 mmHg (35-45); ARTERIAL BLOOD GAS PO2 141.4 mmHg (80-100)
--- NOTE | 2019-02-21 05:20 | NUR ---
PER PROTOCOL PT HAS TO BE INTUBATED FOR MORE THAN 24 HOURS BEFORE A WEANING TRIAL CAN BE STARTED. THEREFORE WEANING TRIAL ON THIS PT WILL NOT BE STARTED UNTIL 02/22 IN THE MORNING.PT IS ON DOCUMENTED SETTINGS ALIYA WELL WITH NO DISTRESS NOTED WILL NOTIFY RN AND DAY SHIFT RT OF NO WEANING TRIAL BEING INITIATED. WILL CONTIINUE TO MONITOR AND ASSESS
--- NOTE | 2019-02-21 05:38 | NUR ---
PT IS ALERT AND FOLLOWING COMMANDS. PT ANSWERING YES/NO QUESTIONS APPROPRIATLY. PT UPDATED ON PLAN. PT TOLERATING ABG'S AND ORAL CARE WELL. PT DID BEGIN TO COUGH AGAINST VENT. SEDATION BACK TO ORIGINAL SETTINGS.
--- NOTE | 2019-02-21 05:42 | NUR ---
0512: PTS BG FROM FINGER STICK 66. HALF AMP OF D50 GIVEN. 0527: PTS BG FROM FINGER STICK 52. PT AWAKE AND ANSWERING QUESTIONS. 0530: PTS BG FROM PICC LINE 182. CALL PLACED TO TERRANCE CORREA WITH [facility] TO UPDATE ON ABOVE. HE STATES YOUR SERUM BG FROM PICC SHOULD BE MOST ACCURATE. WILL CONTIUE TO MONITOR.
--- NOTE | 2019-02-21 06:11 | NUR ---
[facility] WAS CALLED ABOUT HIGH PaO2 AND VERIFIED THAT FIO2 CAN BE TURNED DOWN TO 40%. NOTIFIED NURSE AND DAY SHIFT RT. PT ALIYA WELL WITH NO DISTRESS NOTED AT THIS TIME. PT ON THE CURRENT DOCUMENTED SETTINGS WITH THE FI02 CHANGE.
--- NOTE | 2019-02-21 07:15 | NUR ---
Report received from MADELINE Roberts.
--- NOTE | 2019-02-21 08:15 | NUR ---
Assessment completed. Pt on ventilator with propofol and fentanyl gtts for sedation. Opens eyes to name. Follows simple commands. Moves all extremities. Vital signs stable. Titrating levophed gtt down. Discussed plan of care r/t oral care, medications and ventilator. Pt nodded for understanding. Will monitor.
--- NOTE | 2019-02-21 09:30 | NUR ---
primary care nurse reported having difficulty obtaining lab samples via PICC line. Reviewed this a.m. chest x-ray. With sterile technique right upper arm dressing change done with insertion site cleansed with ChloraPrep 1, catheter pulled back 2 cm to 1 cm marking on catheter, skin prep, StatLock, chlorhexidine impregnated disc applied, and Tegaderm applied. Arm wrapped with Ken to protect catheter. No signs or symptoms of IV complications noted. RN reported later in the day no difficulty with obtaining lab samples now.
--- NOTE | 2019-02-21 12:30 | NUR ---
Assessment complete. Pt's at bedside. updated on pt status. Verbalizes understanding.
[2019-02-21 13:25] LABS: MAGNESIUM 1.9 mg/dL (1.6-2.3)
[2019-02-21 13:54] LABS: TROPONIN-I 0.071 ng/mL (0.000-0.035)
--- NOTE | 2019-02-21 17:00 | NUR ---
DECREASE PROPOFOL GTT FOR SEDATION VACATION. PT OPENS EYES TO NAME. FOLLOW SIMPLE COMMANDS. MOVES ALL EXTREMITIES.
[2019-02-21 18:04] LABS: HEMATOCRIT 22.4 % (37.0-47.0)
--- NOTE | 2019-02-21 19:33 | NUR ---
Report given to MADELINE Roberts.
[2019-02-22] VITALS (1314 sets, daily range): BP systolic 83–133; BP diastolic 54–91; PULSE 69–95; TEMP 98.9–101.6; O2SAT 92–100
--- NOTE | 2019-02-22 01:35 | NUR ---
PT TEMP UP TO 101.6. TYLENOL GIVEN THRU THE OG. WILL CONTINUE TO MONITOR.
[2019-02-22 04:47] LABS: ARTERIAL BLD GAS O2 SATURATION 98.3 % (92-100); ARTERIAL BLD GAS TCO2 CT 20.9; ARTERIAL BLOOD GAS PCO2 32.2 mmHg (35-45); ARTERIAL BLOOD GAS pH 7.41 (7.35-7.45)
[2019-02-22 04:48] LABS: ARTERIAL BLOOD GAS PO2 142.2 mmHg (80-100)
--- NOTE | 2019-02-22 04:56 | NUR ---
DUE TO PROTOCOL AND CRITERIA FOR A WEANING TRIAL PT HAS A FEVER THEREFORE IS UNABLE TO DO A WEANING TRIAL. PT IS ON DOCUMENTED SETTINGS AND IS ALIYA WELL WITH NO DISTRESS NOTED AT THIS TIME. WILL NOTIFY DAY SHIFT RT AND LET RN KNOW. WILL CONTINUE TO MONITOR AND ASSESS
--- NOTE | 2019-02-22 05:13 | NUR ---
PT WAKES TO VOICE. PT ABLE TO FOLLOW COMMANDS AND ANSWER YES/NO QUESTIONS APPROPRIATELY. PT DOES BEGIN TO COUGH SO SEDATION INCREASED BACK TO PRIOR.
[2019-02-22 05:23] LABS: BASO % 0.3 % (0.0-2.0); EOS # 0.2 (0.0-0.7); EOS % 3.2 % (0-4.0); GRAN # 4.2 (1.4-6.5); GRAN % 55.4 % (42.2-75.2); LYMPH # 1.8 (1.2-3.4); LYMPH % 24.3 % (20.0-51.0); MEAN CELL VOLUME 89 fl (80.0-100.0); MEAN CORPUSCULAR HGB CONC 36 g/dl (33.0-37.0); MEAN PLATELET VOLUME 12.2 fl (7.4-10.4); MONO # 1.2 (0.1-0.6); MONO % 16.4 % (1.7-9.3); PLATELET COUNT 129 K/mm3 (130-400); RED BLOOD COUNT 2.38 M/mm3 (4.10-5.30); REDCELL DISTRIBUTION WIDTH-CV 15.6 % (11.5-14.5)
[2019-02-22 05:30] LABS: HEMATOCRIT 21.2 % (37.0-47.0); HEMOGLOBIN 7.6 g/dl (12.5-16.0); INR 1.7 (0.8-3.0); MEAN CORPUSCULAR HEMOGLOBIN 32 pg (27.0-31.0); PROTHROMBIN TIME 19.8 SECONDS (9.7-12.8)
[2019-02-22 05:32] LABS: ALBUMIN 2.4 gm/dL (3.5-5.0); BILIRUBIN,TOTAL 0.5 mg/dL (0.0-1.0); CALCIUM 6.5 mg/dL (8.4-10.2); CREATININE, serum 0.85 (0.52-1.25); MAGNESIUM 1.8 mg/dL (1.6-2.3); PHOSPHOROUS 1.7 mg/dL (2.5-4.5); POTASSIUM 3.7 mmol/L (3.4-5.0); TOTAL PROTEIN 5.6 gm/dL (6.4-8.2)
--- NOTE | 2019-02-22 09:51 | NUR ---
Initial visit with family member letting her know of the availability of spiritual care for her mother and all family members. She thanked Marine Equipment Sales Engineer.
--- NOTE | 2019-02-22 11:28 | NUR ---
pATIENT RESTING EASY TO COMMUNICATE WITH, EYES OPEN FOLLOWS INSTRUCTIONS DENIES PAIN
--- NOTE | 2019-02-22 12:10 | NUR ---
cbs AT 168 AND CLIMBING STOPPED D5 NS UPON MD ORDER
--- NOTE | 2019-02-22 15:44 | NUR ---
BRONCH PERFORMED AT 1306 TIME OUT AT 1305 1307 MD BEGINS, STOP AT 1313
[2019-02-23] VITALS (1081 sets, daily range): BP systolic 102–126; BP diastolic 63–86; PULSE 71–92; TEMP 98.5–101.2; O2SAT 52–100
--- NOTE | 2019-02-23 02:43 | NUR ---
PT has been following directions and communication by pointing at letters written on clipboard. Asked how long she would be in the hospital and intubated. Education provided on medications, length of stay, and POC for the evening. Patient follows directions well, however did not answer appropriately during her CAM-ICU assessment.
[2019-02-23 05:25] LABS: MEAN CELL VOLUME 88 fl (80.0-100.0); MEAN CORPUSCULAR HGB CONC 37 g/dl (33.0-37.0); MEAN PLATELET VOLUME 11.7 fl (7.4-10.4); PLATELET COUNT 156 K/mm3 (130-400); RED BLOOD COUNT 2.36 M/mm3 (4.10-5.30); REDCELL DISTRIBUTION WIDTH-CV 15.6 % (11.5-14.5)
[2019-02-23 05:26] LABS: HEMATOCRIT 20.8 % (37.0-47.0); HEMOGLOBIN 7.6 g/dl (12.5-16.0); MEAN CORPUSCULAR HEMOGLOBIN 32 pg (27.0-31.0)
[2019-02-23 05:32] LABS: INR 1.6 (0.8-3.0); PROTHROMBIN TIME 19.3 SECONDS (9.7-12.8)
[2019-02-23 05:39] LABS: ALBUMIN 2.5 gm/dL (3.5-5.0); BILIRUBIN,TOTAL 0.5 mg/dL (0.0-1.0); CALCIUM 7.1 mg/dL (8.4-10.2); CREATININE, serum 0.87 (0.52-1.25); MAGNESIUM 1.6 mg/dL (1.6-2.3); PHOSPHOROUS 1.7 mg/dL (2.5-4.5); POTASSIUM 3.4 mmol/L (3.4-5.0); TOTAL PROTEIN 5.9 gm/dL (6.4-8.2)
[2019-02-23 05:50] LABS: BAND 7 % (0-10); EOSINOPHIL 2 % (0-4); LYMPHOCYTE 32 % (20.0-51.0); NEUTROPHILS 41 % (42.0-75.2)
[2019-02-23 05:52] LABS: ANISOCYTOSIS 1+; PLATELET ESTIMATE NORMAL (NORMAL); TARGET CELLS 2+
[2019-02-23 05:55] LABS: TEAR DROP CELLS 1+
--- NOTE | 2019-02-23 07:15 | NUR ---
Bedside shift report received from MADELINE Lilly. Patient is on ventilator, sedated, and is calm at this time. Full assessment completed. Vital signs stable. Bed in lowest position. Call light within reach. Side rails up x3. Restraints assessed and secured.
--- NOTE | 2019-02-23 08:00 | NUR ---
Fentanyl and propofol on standby at this time per Dr. Fournier's verbal order.
[2019-02-23 09:10] LABS: ARTERIAL BLD GAS TCO2 CT 24.6; ARTERIAL BLOOD GAS BASE EXCESS -0.2 (-2-2); ARTERIAL BLOOD GAS HCO3 23.5 meq/L (22-26); ARTERIAL BLOOD GAS PCO2 34.3 mmHg (35-45); ARTERIAL BLOOD GAS pH 7.45 (7.35-7.45)
[2019-02-23 09:12] LABS: ARTERIAL BLOOD GAS PO2 155.7 mmHg (80-100)
--- NOTE | 2019-02-23 10:30 | NUR ---
Patient indicates per whiteboard that she is having some pain and anxiety. Refer to titration documentation. Fentanyl and propofol restarted at this time.
--- NOTE | 2019-02-23 13:24 | NUR ---
LEAD TECHNICAL WRITER student attended clinical rounds with the team. The patient is intubated but alert. Patient will continue antibiotics. managed services consultant will contiue to monitor.
--- NOTE | 2019-02-23 19:36 | NUR ---
Bedside shift report given to MADELINE Acuna.
[2019-02-24] VITALS (1278 sets, daily range): BP systolic 103–131; BP diastolic 61–80; PULSE 76–88; TEMP 98.8–99.9; O2SAT 77–100
[2019-02-24 05:08] LABS: ARTERIAL BLD GAS O2 SATURATION 98.9 % (92-100); ARTERIAL BLOOD GAS BASE EXCESS 2.2 (-2-2); ARTERIAL BLOOD GAS HCO3 25.9 meq/L (22-26); ARTERIAL BLOOD GAS pH 7.49 (7.35-7.45)
[2019-02-24 05:10] LABS: ARTERIAL BLOOD GAS PO2 155.3 mmHg (80-100)
--- NOTE | 2019-02-24 05:27 | NUR ---
Pt is lethargic but opens eyes to name. Pt able to follow commands and ask questions using letter board. Pt started on vent weaning trial. Will leave on lower sedation as long as able.
[2019-02-24 06:33] LABS: MEAN CELL VOLUME 88 fl (80.0-100.0); MEAN CORPUSCULAR HGB CONC 36 g/dl (33.0-37.0); MEAN PLATELET VOLUME 12.2 fl (7.4-10.4); PLATELET COUNT 171 K/mm3 (130-400); REDCELL DISTRIBUTION WIDTH-CV 15.4 % (11.5-14.5)
[2019-02-24 06:38] LABS: HEMATOCRIT 20.3 % (37.0-47.0); HEMOGLOBIN 7.3 g/dl (12.5-16.0); MEAN CORPUSCULAR HEMOGLOBIN 32 pg (27.0-31.0)
[2019-02-24 06:40] LABS: CALCIUM 7.7 mg/dL (8.4-10.2); CREATININE, serum 0.75 (0.52-1.25); POTASSIUM 3.7 mmol/L (3.4-5.0)
[2019-02-24 07:29] LABS: BAND 9 % (0-10); EOSINOPHIL 4 % (0-4); LYMPHOCYTE 42 % (20.0-51.0); MYELOCYTE 1 % (0-0); NEUTROPHILS 35 % (42.0-75.2); PLATELET ESTIMATE NORMAL (NORMAL); TARGET CELLS 1+
--- NOTE | 2019-02-24 08:42 | NUR ---
AT BEDSIDE, VERBALLY ORDERED TO STOP SEDATION, PROPOFOL AND FENTYNAL WELL TUBE FEEDINGS TO EXTUBATE PT.
--- NOTE | 2019-02-24 11:20 | NUR ---
PT FAILED NIF TEST, SO WAS NOT EXTUBATED AND PROPOFOL AND FENTANYL TURNED BACK ON, WELL TUBE FEEDS.
--- NOTE | 2019-02-24 17:39 | NUR ---
SEDATION VACATION FROM 0842 TO 1120. PT TOLERATED IT VERY WELL, REMAINED STABLE SATS AND VITALS.
--- NOTE | 2019-02-24 19:30 | NUR ---
Bedside report received from MADELINE Maynard. All tubes and lines reviewed, care assumed at this time.
--- NOTE | 2019-02-24 23:28 | NUR ---
Pivot formula bottle and tube feeding tubing replaced. Patient resting comfortably in bed, refused repositioning. PICC line infusing well, gonzalez draining to gravity. Will continue to monitor, call light within reach.
[2019-02-25] VITALS (1317 sets, daily range): BP systolic 114–148; BP diastolic 67–89; PULSE 87–97; TEMP 97.4–101; O2SAT 68–100
--- NOTE | 2019-02-25 03:16 | NUR ---
Patient resting in bed with eyes closed, awakens to verbal stimuli, refused oral care and repositioning. Triplett draining to gravity, PICC line infusing well. Patient denies pain or discomfort at this time, encouraged to call for assistance, reoriented to call light.
[2019-02-25 05:07] LABS: ARTERIAL BLD GAS O2 SATURATION 98.4 % (92-100); ARTERIAL BLD GAS TCO2 CT 26.8; ARTERIAL BLOOD GAS BASE EXCESS 4.2 (-2-2); ARTERIAL BLOOD GAS PCO2 27.9 mmHg (35-45); ARTERIAL BLOOD GAS PO2 127.8 mmHg (80-100); ARTERIAL BLOOD GAS pH 7.59 (7.35-7.45)
[2019-02-25 06:13] LABS: MEAN CELL VOLUME 89 fl (80.0-100.0); MEAN CORPUSCULAR HGB CONC 36 g/dl (33.0-37.0); MEAN PLATELET VOLUME 11.5 fl (7.4-10.4); PLATELET COUNT 229 K/mm3 (130-400); RED BLOOD COUNT 2.23 M/mm3 (4.10-5.30); REDCELL DISTRIBUTION WIDTH-CV 15.7 % (11.5-14.5)
[2019-02-25 06:15] LABS: HEMATOCRIT 19.8 % (37.0-47.0); HEMOGLOBIN 7.1 g/dl (12.5-16.0); MEAN CORPUSCULAR HEMOGLOBIN 32 pg (27.0-31.0)
--- NOTE | 2019-02-25 06:37 | NUR ---
Patient still on vent weaning trial and sedation vacation which started at 0540. Tolerating well, reoriented to call light and room, encouraged to call for assistance. Triplett draining to gravity well, PICC infusing well, denies pain or discomfort at this time.
[2019-02-25 06:39] LABS: ALBUMIN 2.8 gm/dL (3.5-5.0); BILIRUBIN,TOTAL 0.3 mg/dL (0.0-1.0); CALCIUM 8.1 mg/dL (8.4-10.2); CREATININE, serum 0.83 (0.52-1.25); MAGNESIUM 1.5 mg/dL (1.6-2.3); PHOSPHOROUS 2.2 mg/dL (2.5-4.5); POTASSIUM 3.5 mmol/L (3.4-5.0); TOTAL PROTEIN 6.5 gm/dL (6.4-8.2)
[2019-02-25 06:45] LABS: PRE ALBUMIN 8.5 mg/dL (17.6-36.0)
--- NOTE | 2019-02-25 06:45 | NUR ---
PT IS ON WEANING TRIAL 5 OVER 5 ALIYA WELL WITH NO DISTRESS NOTED DAY SHIFT RT IS NOTIFIED.
--- NOTE | 2019-02-25 07:28 | NUR ---
Patient still on vent wean and sedation vacation-tolerating well, refused oral care and repositioning, denies pain or discomfort. Bedside report given to MADELINE Love. All tubes and lines reviewed, care transferred at this time.
--- NOTE | 2019-02-25 08:00 | NUR ---
Shift assessment complete at this time. Plan of care reviewed at bedside with patient et family. Additional time taken to address any other needs or concerns. Pt denies pain at this time. Vitals stable. Bed in low position, call light within reach. Will continue to monitor.
[2019-02-25 09:21] LABS: ANISOCYTOSIS 1+; BAND 5 % (0-10); EOSINOPHIL 3 % (0-4); LYMPHOCYTE 39 % (20.0-51.0); NEUTROPHILS 36 % (42.0-75.2); PLATELET ESTIMATE NORMAL (NORMAL); TARGET CELLS 2+
--- NOTE | 2019-02-25 10:00 | NUR ---
NIF -19 AT [id number]
--- NOTE | 2019-02-25 11:00 | NUR ---
Pt refused oral care at this time. ETT suctioned.
--- NOTE | 2019-02-25 12:00 | NUR ---
Shift reassessment complete at this time. No changes from previous assessment noted at this time. Pt denies pain or any other discomforts while on ventilator. Vitals stable at this time. Bed in low et locked position, call light within reach. Will continue to monitor.
--- NOTE | 2019-02-25 16:00 | NUR ---
Shift reassessment complete at this time. No changes from previous assessment noted at this time. Pt denies pain or any other discomfort at this time. Vitals stable at this time. Bed in low position, call light within reach. Will continue to monitor.
--- NOTE | 2019-02-25 17:00 | NUR ---
Pt is currently RASS of 0 with no sedation running. No sedation vacation performed.
--- NOTE | 2019-02-25 17:09 | NUR ---
NIF -32. DR MONTES CALLED.
--- NOTE | 2019-02-25 19:30 | NUR ---
Bedside report received from MADELINE Love. All tubes and lines reviewed, care assumed at this time. Patient awake and alert without sedation or restraints-tolerating vent wean well. Denies need for pain medication at this time. Encouraged to use call light for assistance.
--- NOTE | 2019-02-25 19:39 | NUR ---
Bedside report given to MADELINE Rey.
--- NOTE | 2019-02-25 23:32 | NUR ---
PT IS CURRENTLY ON PSV 01/14 AT 30% FI02. PT IS ALERT, AND ORIENTED, FOLLOWS COMMANDS AND IS IN NO DISTRESS. PT IS REQUESTING TO BE LEFT ON PSV AT THIS TIME. SHE IS DOING WELL ON THE DOCUMENTED SETTINGS. PT IS IN NO DISTRESS AND I WILL CONTINUE TO MONITOR AND ASSESS PT AND WILL SWITCH HER BACK OVER TO ACVC+ IF SHE BEGINS TO FEEL TIRED OR IS IN DISTRESS.
--- NOTE | 2019-02-25 23:51 | NUR ---
PT REQUESTED TO BE PUT BACK ON THE ASSIST CONTROL MODE SHE IS TIRED AND WANT TO SLEEP. PT IS BACK IN THE ASSIST CONTROL MODE AND ALIYA IT WELL, WITH NO DISTRESS NOTED SHE IS ON THE DOCUMENTED SETTINGS AND IS RESTING COMFORTABLY IN BED. WILL CONTINUE TO MONITOR AND ASSESS. PT IS ALSO REQUESTING NO ORAL AT NIGHT SHE IS WANTING TO REST AND NOT HAVE ANY INTERUPTIONS.
[2019-02-26] VITALS (1335 sets, daily range): BP systolic 110–172; BP diastolic 68–105; PULSE 86–115; TEMP 98.3–99.1; O2SAT 31–100
--- NOTE | 2019-02-26 01:30 | NUR ---
Tubing changed for IV fluids and Pivot formula. Patient resting between disturbances with no complaints.
--- NOTE | 2019-02-26 03:32 | NUR ---
PT REQUESTING NO ORAL CARE AT NIGHT TIME. THEREFORE NONE HAS BEEN DONE. PT IS RESTING WELL IN BED ALIYA WELL WITH NO DISTRSES NOTED AT THIS TIME
[2019-02-26 04:42] LABS: ARTERIAL BLD GAS O2 SATURATION 98.1 % (92-100); ARTERIAL BLOOD GAS BASE EXCESS 3.9 (-2-2); ARTERIAL BLOOD GAS HCO3 26.1 meq/L (22-26); ARTERIAL BLOOD GAS PO2 112.3 mmHg (80-100); ARTERIAL BLOOD GAS pH 7.56 (7.35-7.45)
--- NOTE | 2019-02-26 05:29 | NUR ---
Patient on vent wean again starting at 0515, no sedation present since yesterday, patient tolerating well, no restaints either, able to follow commands and communicate needs with staff. Patient denies discomfort except occasional cramping with diarrhea.
--- NOTE | 2019-02-26 05:43 | NUR ---
PT IS IN WEANING MODE AND IS ALIYA WELL WITH NO DISTRESS NOTED AT THIS TIME. SHE IS ALERT AND ORIENTED AWAKE AND RESTING IN BED. PT IS SUCTIONING HERSELF AND IS DOING GREAT. WILL CONTINUE TO MONITOR AND ASSESS. WILL NOTIFY DAY SHIFT RT.
[2019-02-26 06:10] LABS: MEAN CELL VOLUME 89 fl (80.0-100.0); MEAN CORPUSCULAR HGB CONC 35 g/dl (33.0-37.0); PLATELET COUNT 287 K/mm3 (130-400); RED BLOOD COUNT 2.36 M/mm3 (4.10-5.30); REDCELL DISTRIBUTION WIDTH-CV 15.9 % (11.5-14.5)
[2019-02-26 06:26] LABS: HEMATOCRIT 20.9 % (37.0-47.0); HEMOGLOBIN 7.4 g/dl (12.5-16.0); MEAN CORPUSCULAR HEMOGLOBIN 31 pg (27.0-31.0)
[2019-02-26 06:28] LABS: CALCIUM 8.2 mg/dL (8.4-10.2); CREATININE, serum 0.85 (0.52-1.25); POTASSIUM 3.3 mmol/L (3.4-5.0)
--- NOTE | 2019-02-26 07:21 | NUR ---
Bedside report given to MADELINE Love. Care transferred at this time.
--- NOTE | 2019-02-26 08:00 | NUR ---
Shift assessment complete at this time. Plan of care reviewed at bedside with patient. Additional time taken to address any other needs or concerns. Vitals stable at this time. Pt denies pain or any other discomforts on ventilator. Bed in low position, call light within reach, will continue to monitor.
[2019-02-26 09:14] LABS: PHOSPHOROUS 2.7 mg/dL (2.5-4.5)
--- NOTE | 2019-02-26 09:42 | NUR ---
NIF PERFORMED OF VENTILATOR. PT NIF AT -33 AT THIS TIME.
--- NOTE | 2019-02-26 10:00 | NUR ---
Pt extubated at this time to 5L OM. Pt tolerated extubation well with no complaints or concerns raised. Will continue to monitor.
--- NOTE | 2019-02-26 10:44 | NUR ---
PT EXTUBATED AT [address] MONTES. PT SUCTIONED ORALLY AND VIA ETT PRIOR TO EXTUBATION. PT PLACED ON 4L OXYMASK. HR 89, RR 22, SPO2 100% BLBS CLEAR AND EQUAL. NO STRIDOR. PT SUCTIONED ORALLY POST EXTUBATION. VSS.
--- NOTE | 2019-02-26 11:54 | NUR ---
PT GIVEN 1MG PULMICORT PER MD ORDER
--- NOTE | 2019-02-26 11:56 | NUR ---
PT GIVEN 5 MG DECADRON NEBULIZED PER MD ORDER AFTER CONSULTING PHARMACY. ALIYA WELL. STRIDOR RESOLVED POST TX. HR 114 RR 28 SPO2 100% PT PLACED ON COOL MIST FACE MASK POST TREATMENTS.
[2019-02-26 11:59] LABS: ANISOCYTOSIS 1+; BAND 4 % (0-10); LYMPHOCYTE 39 % (20.0-51.0); NEUTROPHILS 44 % (42.0-75.2); PLATELET ESTIMATE NORMAL (NORMAL); TARGET CELLS 1+
--- NOTE | 2019-02-26 12:00 | NUR ---
Shift reassessment complete at this time. Changes from previous assessment noted in documentation. Pt denies pain at this time. Pt with noted BP et HR elevation with increased stridor and respiratory distress. Dr. Fournier at bedside and has ordered steroid breathing treatments along with IV decadron. Pt responding well to inital treatments with decreased stridor noted. Bed in low position, call light within reach. Will continue to monitor.
--- NOTE | 2019-02-26 14:00 | NUR ---
Pt intubated at [address] Fournier by Dr. Moffett. Intubation placement verified by color change, auscultation, and x-ray confirmation. 16 Fr OG placed at 1415 additionally. 20 mg of Etomidate and 100 mg of Succinylcholine administered per direction of Dr. Moffett. Informed consent for procedure obtained prior to intubation. Propofol gtt initatied post-intubation for sedation management.
--- NOTE | 2019-02-26 15:46 | NUR ---
PT NEBULIZED 5MG DECADRON PER DR JYOTI BARRAZA. CONSULTED PHARMACY PRIOR TO TREATMENT
--- NOTE | 2019-02-26 16:00 | NUR ---
Shift reassessment complete at this time. Changes from previous assessment noted in documentation. Vitals stable at this time. Pt denies pain or any discomfort while on ventilator. Bed in low position, call light within reach, will continue to monitor.
[2019-02-26 16:14] LABS: ARTERIAL BLD GAS O2 SATURATION 99.6 % (92-100); ARTERIAL BLD GAS TCO2 CT 26.7; ARTERIAL BLOOD GAS BASE EXCESS 2.1 (-2-2); ARTERIAL BLOOD GAS HCO3 25.6 meq/L (22-26); ARTERIAL BLOOD GAS PCO2 35.8 mmHg (35-45); ARTERIAL BLOOD GAS pH 7.47 (7.35-7.45)
[2019-02-26 16:15] LABS: ARTERIAL BLOOD GAS PO2 394.6 mmHg (80-100)
--- NOTE | 2019-02-26 17:00 | NUR ---
Pt recently reintubated. No sedation vacation performed at this time. Pt reports that she is comfortably resting at this sedation level. Pt also refuses oral care at this time.
--- NOTE | 2019-02-26 17:18 | NUR ---
PT REINTUBATED AT [address] GUZMAN FOR INCREASED RESPIRATORY FAILURE POST EXTUBATION. SIZE 7.5 ETT SECURED AT 21CM @ TEETH WITH BLBS AND POSITIVE COLOR CHANGE WITH CAPNOGRAPHY. CHEST X-RAY PERFORMED AND CONFIRMED ETT PLACEMENT. PT PLACED ON VENT SETTINGS PER DR MONTES ORDER. SUCTIONED LARGE AMOUNTS OF PINK FROTHY SECRETIONS. VSS STABLE.
--- NOTE | 2019-02-26 21:40 | NUR ---
PT REFUSES ORAL CARE FROM NURSE AND RESPIRATORY THERAPIST OVERNIGHT BECAUSE SHE DOES NOT WANT TO BE WOKEN UP.
[2019-02-27] VITALS (1421 sets, daily range): BP systolic 100–111; BP diastolic 67–72; PULSE 72–98; TEMP 97–99.4; O2SAT 53–100
--- NOTE | 2019-02-27 01:00 | NUR ---
PT REFUSED ORAL CARE.
--- NOTE | 2019-02-27 02:40 | NUR ---
PT REQUESTED AT 1900 CHECK TO NOT BE DISTERBED WITH ORAL CARE WHEN SLEEPING TONIGHT THEREFORE NO ORAL CARE WAS DONE AFTER PTS 0 CHECK.
--- NOTE | 2019-02-27 05:00 | NUR ---
PT REFUSED ORAL CARE THIS MORNING.
[2019-02-27 05:02] LABS: BASO % 0.1 % (0.0-2.0); GRAN # 6.3 (1.4-6.5); GRAN % 67.2 % (42.2-75.2); HEMATOCRIT 21.6 % (37.0-47.0); HEMOGLOBIN 7.7 g/dl (12.5-16.0); LYMPH # 2.3 (1.2-3.4); LYMPH % 24.2 % (20.0-51.0); MEAN CELL VOLUME 88 fl (80.0-100.0); MEAN CORPUSCULAR HEMOGLOBIN 31 pg (27.0-31.0); MEAN CORPUSCULAR HGB CONC 36 g/dl (33.0-37.0); MEAN PLATELET VOLUME 11.5 fl (7.4-10.4); MONO # 0.7 (0.1-0.6); MONO % 7.2 % (1.7-9.3); PLATELET COUNT 334 K/mm3 (130-400); RED BLOOD COUNT 2.46 M/mm3 (4.10-5.30); REDCELL DISTRIBUTION WIDTH-CV 15.8 % (11.5-14.5)
[2019-02-27 05:10] LABS: ALBUMIN 3.2 gm/dL (3.5-5.0); BILIRUBIN,TOTAL 0.3 mg/dL (0.0-1.0); CALCIUM 8.6 mg/dL (8.4-10.2); CREATININE, serum 0.84 (0.52-1.25); PHOSPHOROUS 1.9 mg/dL (2.5-4.5); POTASSIUM 3.8 mmol/L (3.4-5.0); TOTAL PROTEIN 7.3 gm/dL (6.4-8.2)
[2019-02-27 05:10] LABS: ARTERIAL BLD GAS O2 SATURATION 98.5 % (92-100); ARTERIAL BLD GAS TCO2 CT 24.6; ARTERIAL BLOOD GAS BASE EXCESS 2.2 (-2-2); ARTERIAL BLOOD GAS HCO3 23.8 meq/L (22-26); ARTERIAL BLOOD GAS PCO2 26.6 mmHg (35-45); ARTERIAL BLOOD GAS pH 7.57 (7.35-7.45)
[2019-02-27 05:11] LABS: ARTERIAL BLOOD GAS PO2 140.5 mmHg (80-100)
[2019-02-27 05:18] LABS: PRE ALBUMIN 10.6 mg/dL (17.6-36.0)
--- NOTE | 2019-02-27 06:03 | NUR ---
PT NOT ON WEANING TRIAL NEEDS TO BE INTUBATED FOR OVER 24 HOURS. NO DISTRESS NOTED AT THIS TIME ON DOCUMENTED SETTINGS. WILL NOTIFY DAY SHIFT RT PT IS ALIYA WELL AND NO DISTRESS NOTED.
--- NOTE | 2019-02-27 06:30 | NUR ---
pt tolerated sedation vacation very well, vitals stable.
--- NOTE | 2019-02-27 08:45 | NUR ---
PICC intact right upper arm with sterile dressing change done with insertion site cleansed with chloraprep x 1, chlorhexidine impregnated disk appiled, skin prep, stat lock, and tegaderm applied. no signs or symptoms of IV complications noted.
--- NOTE | 2019-02-27 09:46 | NUR ---
VT DECREASED AT THIS TIME PER DR. SULTANA. ABG PENDING FOR 1200.
[2019-02-27 12:09] LABS: ARTERIAL BLD GAS TCO2 CT 24.9; ARTERIAL BLOOD GAS BASE EXCESS 0.8 (-2-2); ARTERIAL BLOOD GAS HCO3 23.9 meq/L (22-26); ARTERIAL BLOOD GAS PCO2 31.6 mmHg (35-45); ARTERIAL BLOOD GAS PO2 111.7 mmHg (80-100)
[2019-02-28] VITALS (744 sets, daily range): BP systolic 102–141; BP diastolic 66–93; PULSE 61–77; TEMP 97.5–98.4; O2SAT 39–100
[2019-02-28 05:07] LABS: MEAN CELL VOLUME 89 fl (80.0-100.0); MEAN CORPUSCULAR HGB CONC 36 g/dl (33.0-37.0); MEAN PLATELET VOLUME 11.3 fl (7.4-10.4); PLATELET COUNT 382 K/mm3 (130-400); RED BLOOD COUNT 2.47 M/mm3 (4.10-5.30); REDCELL DISTRIBUTION WIDTH-CV 16.3 % (11.5-14.5)
[2019-02-28 05:09] LABS: HEMOGLOBIN 7.8 g/dl (12.5-16.0); MEAN CORPUSCULAR HEMOGLOBIN 32 pg (27.0-31.0)
--- NOTE | 2019-02-28 05:09 | NUR ---
SEDATION VACATION NOT PERFORMED PT ALREADY AWAKE, ALERT AND ORIENTED, FOLLOWING COMMANDS AND COMMUNICATES NEED THROUGH WRITING. PT DENIES ANY PAIN AT THIS TIME. WILL CONTINUE TO MONITOR.
[2019-02-28 05:25] LABS: BILIRUBIN,TOTAL 0.4 mg/dL (0.0-1.0); CALCIUM 8.5 mg/dL (8.4-10.2); CREATININE, serum 0.78 (0.52-1.25); MAGNESIUM 2.1 mg/dL (1.6-2.3); PHOSPHOROUS 2.9 mg/dL (2.5-4.5)
[2019-02-28 06:02] LABS: ARTERIAL BLD GAS O2 SATURATION 98.1 % (92-100); ARTERIAL BLD GAS TCO2 CT 28.7; ARTERIAL BLOOD GAS BASE EXCESS 3.8 (-2-2); ARTERIAL BLOOD GAS HCO3 27.6 meq/L (22-26); ARTERIAL BLOOD GAS PCO2 38.3 mmHg (35-45); ARTERIAL BLOOD GAS PO2 112.2 mmHg (80-100); ARTERIAL BLOOD GAS pH 7.48 (7.35-7.45)
[2019-02-28 06:10] LABS: ANISOCYTOSIS 1+; BAND 24 % (0-10); LYMPHOCYTE 9 % (20.0-51.0); METAMYELOCYTE 2 % (0-0); NEUTROPHILS 63 % (42.0-75.2); PLATELET ESTIMATE NORMAL (NORMAL)
[2019-02-28 06:11] LABS: TARGET CELLS 2+
--- NOTE | 2019-02-28 07:17 | NUR ---
PT RECEIVED ON CPAP / VT WERE UNDER 300 AND RR 30+. AT THIS TIME PT WAS CHANGED BACK TO AC/VC+. PLEASE SEE ADDITIONAL CHARTING.
--- NOTE | 2019-02-28 07:30 | NUR ---
DUE TO PATIENT DECREASED INSP VOLUMES WHILE ON CPAP TRIAL PROPOFOL AND FENT GTTS PLACED ON STANDBY. PATIENT COMMUNICATED TO DR SULTANA THAT EVEN IF SHE ISN'T READY TO BE EXTUBATED FROM HIS STANDPOINT SHE STILL WANTS THE ETT TAKEN OUT AND SHE DOES NOT WANT TO BE REINTUBTED. DR SULTANA ASKED PATIENT IF SHE HAS COMMUNICATED THESE WISHES TO HER . PATIENT SHOOK HER HEAD NO. I CALLED YANY TO ASK IF HE COULD COME TO THE HOSPITAL EARLY SO PATIENT COULD COMMUNICATE HER WISHES TO HIM PRIOR TO US DOING ANYTHING SUCH EXTUBATING HER. YANY STATES HE WILL BE HERE IN 30 MINS. PLAN EXPLAINED TO PATIENT THAT WE WILL GIVE HER A 30 MINUTE BREAK AND ALLOW HER TO FULLY WAKE UP AND THEN IN 30 MINS WE WILL ATTEMPT CPAP TRIAL AGAIN. PATIENT NODS TO EXPRESS UNDERSTANDING OF PLAN.
--- NOTE | 2019-02-28 08:16 | NUR ---
PT CHANGED TO CPAP TRIAL OF 8/5+ AT THIS TIME PER DR. SULTANA FOR ONE MORE ATTEMPT AT WEANING. PLEASE SEE ADDITIONAL CHARTING.
--- NOTE | 2019-02-28 08:52 | NUR ---
PATIENT'S HAS ARRIVED.
--- NOTE | 2019-02-28 09:15 | NUR ---
PT TACHYPNEIC AND ANXIOUS. PT'S INSP VOLUME TOO POOR TO EXTUBATE PATIENT ACCORDING TO DR SULTANA. WILL NOT EXTUBATE TODAY. WILL ATTEMPT AGAIN TOMORROW AM. DR SULTANA STATES TO RESUME SEDATION AND PREVIOUS VENT SETTINGS.
--- NOTE | 2019-02-28 09:15 | NUR ---
PROPOFOL GTT RESUMED AT 25MCG/KG/MIN FENTANYL GTT RESUMED T 50MCG/HR
--- NOTE | 2019-02-28 20:00 | NUR ---
PT AWAKE, ALERT AND ORIENTED, FOLLOWS COMMANDS APPROPRIATELY AND COMMUNICATES THROUGH WRITING, DENIES ANY PAIN OR DISCOMFORT AT THIS TIME. WILL CONTINUE TO MONITOR.
[2019-03-01] VITALS (659 sets, daily range): BP systolic 109–127; BP diastolic 63–85; PULSE 60–81; TEMP 97.8–98.6; O2SAT 31–100
--- NOTE | 2019-03-01 05:02 | NUR ---
SEDATION VACATION NOT PERFORMED PT AWAKE AND RESTING COMFORTABLY, COMMUNICATING THROUGH WRITING. PT FOLLOWS COMMANDS APPROPRIATELY AND DENIES ANY PAIN OR DISCOMFORT AT THIS TIME. WILL CONTINUE TO MONITOR.
[2019-03-01 05:14] LABS: ARTERIAL BLD GAS O2 SATURATION 98.2 % (92-100); ARTERIAL BLD GAS TCO2 CT 24.8; ARTERIAL BLOOD GAS BASE EXCESS 1.1 (-2-2); ARTERIAL BLOOD GAS HCO3 23.9 meq/L (22-26); ARTERIAL BLOOD GAS PCO2 30.2 mmHg (35-45); ARTERIAL BLOOD GAS PO2 118.3 mmHg (80-100); ARTERIAL BLOOD GAS pH 7.52 (7.35-7.45)
[2019-03-01 05:46] LABS: ALBUMIN 3.1 gm/dL (3.5-5.0); BILIRUBIN,TOTAL 0.3 mg/dL (0.0-1.0); CALCIUM 8.6 mg/dL (8.4-10.2); CREATININE, serum 0.85 (0.52-1.25); MAGNESIUM 2.2 mg/dL (1.6-2.3); PHOSPHOROUS 3.1 mg/dL (2.5-4.5); POTASSIUM 3.9 mmol/L (3.4-5.0); TOTAL PROTEIN 7.3 gm/dL (6.4-8.2)
[2019-03-01 06:06] LABS: MEAN CELL VOLUME 89 fl (80.0-100.0); MEAN CORPUSCULAR HGB CONC 34 g/dl (33.0-37.0); MEAN PLATELET VOLUME 11.9 fl (7.4-10.4); PLATELET COUNT 414 K/mm3 (130-400); RED BLOOD COUNT 2.84 M/mm3 (4.10-5.30); REDCELL DISTRIBUTION WIDTH-CV 16.3 % (11.5-14.5)
[2019-03-01 06:13] LABS: HEMATOCRIT 25.4 % (37.0-47.0); HEMOGLOBIN 8.7 g/dl (12.5-16.0); MEAN CORPUSCULAR HEMOGLOBIN 31 pg (27.0-31.0)
[2019-03-01 08:02] LABS: BAND 3 % (0-10); LYMPHOCYTE 14 % (20.0-51.0); NEUTROPHILS 83 % (42.0-75.2); NUCLEATED RED BLOOD CELL 3 (0-6)
[2019-03-01 08:03] LABS: ANISOCYTOSIS 1+; PLATELET ESTIMATE INCREASED (NORMAL); TARGET CELLS 2+
[2019-03-01 09:13] LABS: ARTERIAL BLD GAS O2 SATURATION 96.7 % (92-100); ARTERIAL BLD GAS TCO2 CT 27.7; ARTERIAL BLOOD GAS BASE EXCESS 2.4 (-2-2); ARTERIAL BLOOD GAS HCO3 26.5 meq/L (22-26); ARTERIAL BLOOD GAS PCO2 39.3 mmHg (35-45); ARTERIAL BLOOD GAS PO2 92.9 mmHg (80-100); ARTERIAL BLOOD GAS pH 7.45 (7.35-7.45)
--- NOTE | 2019-03-01 09:30 | NUR ---
Extubated to 8L Oxymask, tolerating well. SPO2 97% and above.
--- NOTE | 2019-03-01 09:30 | NUR ---
PT EXTUBATED PER DR. SULTANA TO 8 LPM OXYMASK WITHOUT COMPLICATION; RN PRESENT. 95%, HR 80, RR 24. NO STRIDOR NOTED AT THIS TIME. BILATERAL BREATHSOUNDS CLEAR AND EQUAL.
--- NOTE | 2019-03-01 10:31 | NUR ---
Tolerating extubated status without issue. at bedside. Patient is calm, coughing up thick white secretions. Uses suction wand to remove from mouth. SPO2 100% on 8L Oxymask. RR mid 20s.
[2019-03-01 13:59] LABS: ARTERIAL BLD GAS TCO2 CT 28.1; ARTERIAL BLOOD GAS BASE EXCESS 2.5 (-2-2); ARTERIAL BLOOD GAS HCO3 26.8 meq/L (22-26); ARTERIAL BLOOD GAS PCO2 40.5 mmHg (35-45); ARTERIAL BLOOD GAS PO2 105.1 mmHg (80-100); ARTERIAL BLOOD GAS pH 7.44 (7.35-7.45)
--- NOTE | 2019-03-01 16:03 | NUR ---
The patient is extubated. legal services manager will continue to follow.
--- NOTE | 2019-03-01 16:05 | NUR ---
Up in chair since 3pm. Taking thin liquids slowly and tolerating well.
--- NOTE | 2019-03-01 16:20 | NUR ---
Physical therapy is recommending post acute rehab. OSTOMY NURSE student met with patient and her Neel to present [email or web address]'s list for IPR and SNF. They will look it over and let me know in the morning. environmental services specialist will continue to follow to ensure a safe discharge.
--- NOTE | 2019-03-01 19:40 | NUR ---
Received report from MADELINE Trimble.
--- NOTE | 2019-03-01 21:00 | NUR ---
Patient is sitting upright in recliner at this time. Patient's voice is hoarse although understandable. Patient has been taking clear liquids today and is now on AHA diet as tolerated. Patient requests that oral medications be crushed in pudding at this time. Medications are tolerated somewhat well; patient has a mild dry cough following sips of water with medication. Will continue to monitor.
[2019-03-02] VITALS (491 sets, daily range): BP systolic 110–130; BP diastolic 65–84; PULSE 61–88; TEMP 97.8–98.3; O2SAT 31–100
--- NOTE | 2019-03-02 02:43 | NUR ---
Patient continues to exhibit a mild cough after small sips of water. Speech consult requested.
[2019-03-02 06:38] LABS: ALBUMIN 3.5 gm/dL (3.5-5.0); BILIRUBIN,TOTAL 0.3 mg/dL (0.0-1.0); CALCIUM 9.3 mg/dL (8.4-10.2); CREATININE, serum 0.9 (0.52-1.25); MAGNESIUM 2.1 mg/dL (1.6-2.3); PHOSPHOROUS 4.2 mg/dL (2.5-4.5); POTASSIUM 4.1 mmol/L (3.4-5.0); TOTAL PROTEIN 7.7 gm/dL (6.4-8.2)
[2019-03-02 07:01] LABS: MEAN CELL VOLUME 91 fl (80.0-100.0); MEAN CORPUSCULAR HGB CONC 34 g/dl (33.0-37.0); PLATELET COUNT 441 K/mm3 (130-400); RED BLOOD COUNT 3.01 M/mm3 (4.10-5.30); REDCELL DISTRIBUTION WIDTH-CV 17.7 % (11.5-14.5)
[2019-03-02 07:09] LABS: HEMATOCRIT 27.4 % (37.0-47.0); HEMOGLOBIN 9.4 g/dl (12.5-16.0); MEAN CORPUSCULAR HEMOGLOBIN 31 pg (27.0-31.0)
--- NOTE | 2019-03-02 08:00 | NUR ---
Shift assessment complete at this time. Additional time taken to address any other needs. Plan of care reviewed at bedside with patient. Vitals stable at this time. Pt denies pain or any other discomforts. Bed in low position, call light within reach. will continue to monitor.
--- NOTE | 2019-03-02 08:16 | NUR ---
Report given to MADELINE Love.
[2019-03-02 09:07] LABS: BAND 3 % (0-10); LYMPHOCYTE 19 % (20.0-51.0); METAMYELOCYTE 1 % (0-0); MYELOCYTE 1 % (0-0); NEUTROPHILS 72 % (42.0-75.2); PLATELET ESTIMATE NORMAL (NORMAL)
[2019-03-02 09:08] LABS: HYPOCHROMIA 1+; TARGET CELLS 2+
--- NOTE | 2019-03-02 10:50 | NUR ---
INFORMATION CONSULTANT student met with the patient and her Neel to discuss post acute rehab. INFORMATION CONSULTANT student presented the patient choice form and after reviewing [email or web address]'s list the first choice is [facility] and second choice is [facility]. INFORMATION CONSULTANT student faxed referral to Santana at [facility] and contacted KIKA Schmidt Director to inform her. Social serivces will continue to follow.
--- NOTE | 2019-03-02 12:00 | NUR ---
Pt resting comfortably in chair. Vitals stable at this time. Pt denies pain or any other discomforts. Call light within reach, will continue to monitor.
--- NOTE | 2019-03-02 16:00 | NUR ---
Pt resting comfortably in chair. Pt denies pain or any other discomfort. Vitals stable at this time. Bed in low position, call light within reach. Will continue to monitor.
--- NOTE | 2019-03-02 16:45 | NUR ---
Santana from [facility] reports that the patient's PCP needs to send an authorization so [facility] can be in-network. If the PCP does this the patient will be responsible for a $30 a day co-pay. If there is no authorization from the PCP there is a $300 deductible plus a 50% percent cost share. foreign exchange services manager will continue to follow.
--- NOTE | 2019-03-02 22:06 | NUR ---
Patient's rectal tube removed prior to transfer to medical. Patient was transferred to room 354 via wheelchair. Contact was made with receiving nurse.
--- NOTE | 2019-03-02 22:15 | NUR ---
Patient transferred to medical from ICU- Alert/oriented, talks very quiet/whispers, requesting juice- given with nectar thick ,, will be NPO after MN for Lexiscan, denies pain, denies SOB, on Room air, Triplett with clear yellow urine-on Contact Isolation.
[2019-03-03] VITALS (12 sets, daily range): BP systolic 100–139; BP diastolic 69–82; PULSE 52–133; TEMP 98.1–98.7
[2019-03-03 06:15] LABS: BASO % 0.1 % (0.0-2.0); GRAN # 10.2 (1.4-6.5); GRAN % 74.9 % (42.2-75.2); LYMPH # 2.6 (1.2-3.4); LYMPH % 19.1 % (20.0-51.0); MEAN CELL VOLUME 92 fl (80.0-100.0); MEAN CORPUSCULAR HGB CONC 35 g/dl (33.0-37.0); MEAN PLATELET VOLUME 11.6 fl (7.4-10.4); MONO # 0.7 (0.1-0.6); MONO % 4.8 % (1.7-9.3); PLATELET COUNT 399 K/mm3 (130-400); RED BLOOD COUNT 3.03 M/mm3 (4.10-5.30); REDCELL DISTRIBUTION WIDTH-CV 18.5 % (11.5-14.5)
[2019-03-03 06:21] LABS: HEMATOCRIT 27.8 % (37.0-47.0); HEMOGLOBIN 9.6 g/dl (12.5-16.0); MEAN CORPUSCULAR HEMOGLOBIN 32 pg (27.0-31.0)
[2019-03-03 06:29] LABS: ALBUMIN 3.5 gm/dL (3.5-5.0); BILIRUBIN,TOTAL 0.3 mg/dL (0.0-1.0); CALCIUM 9.4 mg/dL (8.4-10.2); CREATININE, serum 0.92 (0.52-1.25); MAGNESIUM 1.8 mg/dL (1.6-2.3); PHOSPHOROUS 4.5 mg/dL (2.5-4.5); POTASSIUM 4.1 mmol/L (3.4-5.0); TOTAL PROTEIN 7.8 gm/dL (6.4-8.2)
--- NOTE | 2019-03-03 06:33 | NUR ---
Quiet night- Up to bathroom with one assist,gait belt -slow,,, NP0 for lexiscan, pleasant, states feeling better - did have loose stool x1
--- NOTE | 2019-03-03 08:07 | NUR ---
Pt is sitting up in bed, remains NPO for upcoming lexiscan. Pt denies any other needs.
--- NOTE | 2019-03-03 09:08 | NUR ---
Pt to ciara with MADELINE Salvador.
--- NOTE | 2019-03-03 09:10 | NUR ---
Pt resting in bed upon entering room. No c/o at this time, pt is currently NPO for testing. No further needs identified, will continue to monitor.
--- NOTE | 2019-03-03 13:20 | NUR ---
Pt in bed at this time on tablet. No c/o pain, n/v, or other needs verbalized. Primary nurse to resume care at this time.
--- NOTE | 2019-03-03 14:02 | NUR ---
Primary nurse was assisted [facility] [id number] patient care by [employer] [employer] student Herman James and [employer] [employer] [facility] [employer] instructor Marielle Steiner RN-.
--- NOTE | 2019-03-03 14:06 | NUR ---
Saw Tailer attended clinical rounds with the team. FARIHA contacted Santana at [facility] and requested Santana contact patient's PCP, Dr. Baires at [facility] for needed Authorization. Santana advised he would contact PCP. FARIHA will continue to follow.
--- NOTE | 2019-03-03 15:30 | NUR ---
Pt had large, loose bowel movement. Hygiene and gonzalez care provided.
[2019-03-04] VITALS (7 sets, daily range): BP systolic 108–117; BP diastolic 62–78; PULSE 69–101; TEMP 98.1–98.6
--- NOTE | 2019-03-04 01:50 | NUR ---
Patient resting in bed upon arrival to the room. Denies pain. Patient on contact precautions for C. Diff. Noted to have a cough and patient states it is productive, but no sputum noted in suction canister. Noted to require nectar thick liquids and tolerates this well. Antibiotics given per orders. PICC to NOLAN flushes with ease. Blood returned. Patient requested and recieved a shower this evening. Triplett continues to be present and draining clear, yellow urine. Requires 1 assist from staff for ambulation and toileting. Lotion applied to patient. Denies any further needs. Will continue to monitor.
[2019-03-04 08:34] LABS: BASO % 0.1 % (0.0-2.0); EOS % 0.4 % (0-4.0); GRAN # 5.6 (1.4-6.5); GRAN % 58.2 % (42.2-75.2); LYMPH # 3.2 (1.2-3.4); LYMPH % 33.4 % (20.0-51.0); MEAN CELL VOLUME 92 fl (80.0-100.0); MEAN CORPUSCULAR HGB CONC 34 g/dl (33.0-37.0); MEAN PLATELET VOLUME 11.1 fl (7.4-10.4); MONO # 0.7 (0.1-0.6); MONO % 7.3 % (1.7-9.3); PLATELET COUNT 434 K/mm3 (130-400); RED BLOOD COUNT 3.16 M/mm3 (4.10-5.30); REDCELL DISTRIBUTION WIDTH-CV 18.5 % (11.5-14.5)
[2019-03-04 08:51] LABS: CALCIUM 9.8 mg/dL (8.4-10.2); CREATININE, serum 0.81 (0.52-1.25); POTASSIUM 4.5 mmol/L (3.4-5.0)
[2019-03-04 08:57] LABS: HEMATOCRIT 28.9 % (37.0-47.0); HEMOGLOBIN 9.9 g/dl (12.5-16.0); MEAN CORPUSCULAR HEMOGLOBIN 31 pg (27.0-31.0)
--- NOTE | 2019-03-04 19:00 | NUR ---
REPORT RECEIVED FROM MADELINE DIAZ; CARE OF PT ASSUMED AT THIS TIME. BEDSIDE ROUNDS COMPLETED, ALL NEEDS MET. CALL LIGHT WITHIN REACH.
--- NOTE | 2019-03-04 23:00 | NUR ---
PT IS AWAKE, ALERT, OX3 AND PLEASANT. VOICE IS HOARSE D/T RECENT INTUBATION. PT DENIES PAIN. PT DENIES ANY DIARRHEA X2 DAYS NOW. PT AMBULATES INDEPENDENTLY WITHIN HER ROOM WITHOUT DIFFCIULTIES. PT REPORTS VOIDING WITHOUS ISSUES. CALL LIGHT WITHIN REACH.
[2019-03-05] VITALS (8 sets, daily range): BP systolic 94–120; BP diastolic 41–71; PULSE 76–99; TEMP 97.9–99.4
--- NOTE | 2019-03-05 04:07 | NUR ---
PT AMBULATED WITH USE OF WALKER, GAIT BELT AND SBA FROM PT ROOM TO IPR AND BACK TO ROOM. PT DENIES SOB. CALL LIGHT WITHN REACH.
--- NOTE | 2019-03-05 06:30 | NUR ---
PT HAD A GOOD NIGHT, SLEPT INTERMITTENTLY. PT DENIES PAIN OR OTHER ISSUES AT THIS TIME. PT IS SITTING UP IN CHAIR AT BEDSIDE. VOICE REMAINS SLIGHTLY HOARSE BUT HAS BEEN IMPROVING. NOTED INTERMITTENT COUGH WITH NO PRODUCTION, PT USES SUCTION PRN. CALL LIGHT WITHIN REACH.
--- NOTE | 2019-03-05 07:19 | NUR ---
REPORT KANDICE TO MADELINE DIAZ; BEDSIDE ROUNDS COMPLETED, CALL LIGHT WITHIN REACH.
--- NOTE | 2019-03-05 09:30 | NUR ---
PATIENT ASSESSMENT COMPLETED. SHE REPORTS STOOLS ARE FORMED. PURPLE LINE ON THE PICC I AM UNABLE TO FLUSH AT THIS TIME. SHE DOES HAVE A DRY COUGH AND REQUESTS ORANGE JUICE. THIS WAS PROVIDED. PT ARRIVED TO TAKE HER FOR A WALK IN THE HALLWAYS.
--- NOTE | 2019-03-05 20:00 | NUR ---
Assessment complete. Alert and oriented. Pt laying comfortably in bed upon entry. Denies any pain or discomfort at this time. Pt ambulatory to/from bathroom. Non-productive cough noted, pt use yaunker for excess saliva. NLOAN PICC dressing CDI, red port patent and flushed, purple port unable to flush, will endorse to next shift. Pt states having formed stools, last BM earlier this evening. No diarrhea.Medication administered as ordered. Needs attended to at this time. Call light within reach. Contact precautions in place.
[2019-03-06] VITALS (7 sets, daily range): BP systolic 100–117; BP diastolic 59–74; PULSE 73–100; TEMP 97.6–98.9
[2019-03-06 05:42] LABS: BASO % 0.1 % (0.0-2.0); EOS # 0.1 (0.0-0.7); EOS % 1.5 % (0-4.0); GRAN # 4.1 (1.4-6.5); GRAN % 43.5 % (42.2-75.2); LYMPH # 4.1 (1.2-3.4); LYMPH % 43.7 % (20.0-51.0); MEAN CELL VOLUME 91 fl (80.0-100.0); MEAN CORPUSCULAR HGB CONC 36 g/dl (33.0-37.0); MEAN PLATELET VOLUME 10.7 fl (7.4-10.4); MONO % 10.9 % (1.7-9.3); PLATELET COUNT 357 K/mm3 (130-400); RED BLOOD COUNT 3.02 M/mm3 (4.10-5.30); REDCELL DISTRIBUTION WIDTH-CV 18.2 % (11.5-14.5)
[2019-03-06 05:45] LABS: HEMATOCRIT 27.5 % (37.0-47.0); HEMOGLOBIN 9.8 g/dl (12.5-16.0); MEAN CORPUSCULAR HEMOGLOBIN 32 pg (27.0-31.0)
[2019-03-06 05:56] LABS: ALBUMIN 3.7 gm/dL (3.5-5.0); BILIRUBIN,TOTAL 0.4 mg/dL (0.0-1.0); CALCIUM 9.5 mg/dL (8.4-10.2); CREATININE, serum 0.86 (0.52-1.25); MAGNESIUM 2.1 mg/dL (1.6-2.3); PHOSPHOROUS 4.1 mg/dL (2.5-4.5); POTASSIUM 4.6 mmol/L (3.4-5.0); TOTAL PROTEIN 7.9 gm/dL (6.4-8.2)
[2019-03-06 06:03] LABS: PRE ALBUMIN 33.3 mg/dL (17.6-36.0)
--- NOTE | 2019-03-06 07:03 | NUR ---
Pt slept well during this shift. Medications administered as ordered. Needs attended too. Standby assist when walking with pt around floor. Re-educated pt on use of IS. SCD in place. Contact precautions remained in place. Call light within reach.
--- NOTE | 2019-03-06 07:15 | NUR ---
Bedside shift report received from MADELINE Lozano. Pt in bed resting with eyes open, denies needs, will continue to monitor.
--- NOTE | 2019-03-06 10:04 | NUR ---
Assessment charted. PT continues to have dry cough that is not improving, per ST will have swallow test today. PICC to NOLAN, flushes well and has good blood return. Pt denies any pain. Discussed need to reduce orange juice intake due to high acidity. Pt agreeable to this. Hot Press Operator in to talk with pt as well about other options. Resting quietly, denies needs, breathing is shallow, re-educated on uses of IS. Will continue to monitor.
--- NOTE | 2019-03-06 10:10 | NUR ---
with sterile technique right upper arm PICC dressing change done with insertion site cleansed with ChloraPrep 1, chlorhexidine impregnated disc applied, skin prep, StatLock, and Tegaderm applied. No signs or symptoms of IV complications noted. No concerns voiced. Arm wrapped with Ekn to protect catheter.
--- NOTE | 2019-03-06 10:59 | NUR ---
Roxana, IPR Director, reports that she is checking insurance. Santana, at [facility], reports they have spoken to the patient's PCP and that they are sending in auth for . FARIHA met with the patient to inform. The patient reports that she still is wanting to pursue post-acute rehab and does not feel comfortable returning home yet. SW awaiting approval from insurance.
--- NOTE | 2019-03-06 17:44 | NUR ---
Pt has done very well today, up to bathroom independently, steady gate. Feels well, continues to cough but not expectorating anything. Moved to new room d/t removal of precautions for formed stool. Resting quietly in bed at this time with family at bedside. Denies needs, will give bedside shift report to nightshift nurse who will resume care.
--- NOTE | 2019-03-06 20:00 | NUR ---
Assessment complete. Alert and oriented. Denies any pain or discomfort at this time. Present with dry non-productive cough. Medications administered as ordered. NOLAN PICC patent, flushed, dressing CDI. Afebrile. Pt states having formed stools. Last BM earlier today. No diarrhea. Needs attended too. Call light within reach.
[2019-03-07 03:26] VITALS: BP 120/70; PULSE 79; TEMP 98.2
--- NOTE | 2019-03-07 05:27 | NUR ---
Pt had difficulty sleeping through the night. States she would sleep 2 hours and be awake for a few hours then back asleep. Walked with pt on the unit using walker. Medications administered as ordered. Needs met. Call light within reach.
[2019-03-07 05:59] LABS: CALCIUM 9.4 mg/dL (8.4-10.2); CREATININE, serum 0.86 (0.52-1.25); POTASSIUM 4.5 mmol/L (3.4-5.0)
--- NOTE | 2019-03-07 07:30 | NUR ---
Report from Shaggy CORREA.
[2019-03-07 07:32] VITALS: BP 109/75; PULSE 81; TEMP 98.5
[2019-03-07] MEDS ORDERED: PROAIR HFA0.09 MG/AC IH (09:23)
[2019-03-07] MEDS ORDERED: VANCOCIN H250 MG/CAP PO (09:24)
--- NOTE | 2019-03-07 10:45 | NUR ---
PT UP AMBULATING IN HALLS WITH SBA X1. PLAN ON DISCHARGE TODAY. PICC LINE TO BE REMOVED PRIOR TO DISCHARGE.
--- NOTE | 2019-03-07 10:47 | NUR ---
FARIHA attended clinical rounds. The hospitalist discussed the patient's improvement with therapy and being too functional for IPR. The patient is in in agreeance to this and feels comfortable returning home with her . FARIHA then followed up with the patient. The patient reports that she does feel comfortable returning home. FARIHA discussed home health vs outpatient therapy. The patient reports that she would prefer home health. FARIHA presented the patient with [employer]'s list of home health agencies that serve [place]. The patient chose [facility]. FARIHA contacted and faxed a referral to Claire at [facility]. SW awaiting their screen. The patient is also interested in getting a FWW. FARIHA presented and explained the Patient Choice Form for DME. The patient chose [facility]. FARIHA contacted Venkat at [facility]. Venkat reports that they do not bill . FARIHA informed the patient and then she chose [facility]. FARIHA contacted and faxed the patient's FWW to Joseline at [facility]. Awaiting delivery of walker. FARIHA updated Santana at [facility].
[2019-03-07 11:33] VITALS: BP 107/75; PULSE 97; TEMP 98.6
--- NOTE | 2019-03-07 16:24 | NUR ---
Claire, at [facility], reports that requires certified PT/OT therapists and that they do not have that available right now. [facility] bills Shoaib and has PT/OT/ST/fpc. FARIHA met with the patient to update and inform. The patient reports that she would be agreeable to [facility]. FARIHA contacted and faxed a referral to Jose at [facility]. Jose reports that they would need to get authorization, but would try to see the patient. FARIHA informed the patient of this and she would like to pursue with their services. The patient is to discharge back home with her today, 03/07, and home health services for fpc/PT/OT/ST through [facility]. FARIHA faxed the patient's discharge orders to Jose at [facility]. No additional needs at this time.
--- NOTE | 2019-03-07 16:48 | NUR ---
Claire, at [facility], contacted FARIHA to inform that they were able to resolve their therapy issue and are able to accept the patient for services. FARIHA informed the patient of this and she would like to switch back to [facility]. FARIHA notified Jose at [facility]. The patient is to discharge back home with her today, 03/07, with home health services for chcf/PT/OT/ST through [facility]. No additional needs at this time.
--- NOTE | 2019-03-07 17:21 | NUR ---
PT TAKEN TO FRONT IN WHEEL CHAIR. POV TO HOME.
[2019-03-08] MEDS ORDERED: FERRO-TIME325 MG PO (13:53)
== END 2019-03-07 17:22 | disposition other institution (70) | DRG 870 ==
LOC: COL.ER 15:33 → ICU 18:11 → COL.ER 18:11 → MEDICAL 18:11 → ICU 02-20 12:06 → MEDICAL 03-03 01:38
PROVIDERS: Family Medicine; Hospitalist; Internal Medicine Critical Care Medicine; Internal Medicine Pulmonary Disease; Nurse Practitioner Family; Physician Assistant; ADMIT Student in an Organized Health Care Education/Training Program
PROC: 5A1955Z Respiratory Ventilation, Greater than 96 Consecutive Hours (ICD-10-PCS; principal; 2019-02-20)
PROC: 0BH18EZ Insertion of Endotracheal Airway into Trachea, Via Natural or Artificial Opening Endoscopic (ICD-10-PCS; 2019-02-20)
PROC: 02HV33Z Insertion of Infusion Device into Superior Vena Cava, Percutaneous Approach (ICD-10-PCS; 2019-02-20)
PROC: 0B9F8ZX Drainage of Right Lower Lung Lobe, Via Natural or Artificial Opening Endoscopic, Diagnostic (ICD-10-PCS; 2019-02-22)
PROC: 0B9D8ZX Drainage of Right Middle Lung Lobe, Via Natural or Artificial Opening Endoscopic, Diagnostic (ICD-10-PCS; 2019-02-22)
DX: A41.9 Sepsis, unspecified organism (principal); D61.810 Antineoplastic chemotherapy induced pancytopenia; J18.1 Lobar pneumonia, unspecified organism; J96.01 Acute respiratory failure with hypoxia; R65.21 Severe sepsis with septic shock; I21.A1 Myocardial infarction type 2; A04.72 Enterocolitis due to Clostridium difficile, not specified as recurrent; C90.00 Multiple myeloma not having achieved remission; E87.2 Acidosis; E87.3 Alkalosis; N39.0 Urinary tract infection, site not specified; F41.9 Anxiety disorder, unspecified; T38.0X5A Adverse effect of glucocorticoids and synthetic analogues, initial encounter; G72.9 Myopathy, unspecified; E16.2 Hypoglycemia, unspecified; D64.9 Anemia, unspecified; E83.42 Hypomagnesemia; E83.39 Other disorders of phosphorus metabolism; I10 Essential (primary) hypertension; D69.6 Thrombocytopenia, unspecified; T45.1X5A Adverse effect of antineoplastic and immunosuppressive drugs, initial encounter; E78.5 Hyperlipidemia, unspecified; I73.00 Raynaud's syndrome without gangrene; Z90.49 Acquired absence of other specified parts of digestive tract; Z98.51 Tubal ligation status; Z90.710 Acquired absence of both cervix and uterus
CPT/HCPCS: 99222-AI; 99232-AI; 99233-AI; 99239; A4216; A9500; C1751; J0692; J1100; J1450; J1644; J1650; J1815; J1940; J2543; J2704; J2785; J3010; J3370; J3475; J7030; J7042; J7050; J7060; J7070; J7120; J8540; P9016; Q9967

== ENCOUNTER 2019-03-08 12:07 | Emergency (ER) | payer OTHER ==
[~2019-03-08] VITALS: Ht 167.6 cm; Wt 66.4 kg
[~2019-03-08 12:07] MED LIST changes: +PROAIR HFA0.09 MG/AC IH; +VANCOCIN H250 MG/CAP PO
[2019-03-08] MEDS ORDERED: FERRO-TIME325 MG PO (13:53)
[2019-03-08 14:02] LABS: INR 1.4 (0.8-3.0); PROTHROMBIN TIME 16.1 SECONDS (9.7-12.8)
[2019-03-08 14:04] LABS: HEMOGLOBIN 10.2 g/dl (12.5-16.0); MEAN CELL VOLUME 91 fl (80.0-100.0); MEAN CORPUSCULAR HEMOGLOBIN 32 pg (27.0-31.0); MEAN CORPUSCULAR HGB CONC 36 g/dl (33.0-37.0); MEAN PLATELET VOLUME 10.8 fl (7.4-10.4); PLATELET COUNT 278 K/mm3 (130-400); RED BLOOD COUNT 3.15 M/mm3 (4.10-5.30); REDCELL DISTRIBUTION WIDTH-CV 18.3 % (11.5-14.5)
[2019-03-08 14:09] LABS: ALBUMIN 3.8 gm/dL (3.5-5.0); BILIRUBIN,TOTAL 0.5 mg/dL (0.0-1.0); CALCIUM 9.6 mg/dL (8.4-10.2); CREATININE, serum 1.08 (0.52-1.25); HEMATOCRIT 28.5 % (37.0-47.0); POTASSIUM 4.3 mmol/L (3.4-5.0); TOTAL PROTEIN 7.8 gm/dL (6.4-8.2)
[2019-03-08 14:31] LABS: BAND 2 % (0-10); NEUTROPHILS 98 % (42.0-75.2); PLATELET ESTIMATE NORMAL (NORMAL); TARGET CELLS 1+
[2019-03-08 14:32] LABS: ANISOCYTOSIS 1+; TROPONIN-I 0.075 ng/mL (0.000-0.035)
[2019-03-08 15:59] VITALS: BP 101/62; PULSE 141; TEMP 102.3
== END 2019-03-08 16:01 | disposition short-term general hospital (02) ==
LOC: COL.ER 12:07
PROVIDERS: Emergency Medicine
DX: E16.2 Hypoglycemia, unspecified (principal); A41.9 Sepsis, unspecified organism; I10 Essential (primary) hypertension; D64.9 Anemia, unspecified; Z85.79 Personal history of other malignant neoplasms of lymphoid, hematopoietic and related tissues; Z90.710 Acquired absence of both cervix and uterus; Z90.49 Acquired absence of other specified parts of digestive tract; Z79.82 Long term (current) use of aspirin
CPT/HCPCS: C1751; J0692; J3370; J7030; J7050; J7070; Q9967

== ENCOUNTER 2019-05-10 10:30 | Outpatient (RCR) | payer OTHER ==
[~2019-05-10 10:30] MED LIST changes: +FERRO-TIME325 MG PO
== END 2019-07-18 | disposition home or self-care (01) ==
LOC: WSST
DX: R47.1 Dysarthria and anarthria (principal); C90.00 Multiple myeloma not having achieved remission; Z99.11 Dependence on respirator [ventilator] status

== ENCOUNTER → 2020-02-02 | Outpatient (CLI) | payer OTHER | LOC: COL.VAS 01-19 14:15 | DX: R06.02 Shortness of breath (principal) ==

== ENCOUNTER → 2024-01-17 | Outpatient (CLI) | payer MEDICARE, OTHER | LOC: MC.RAD 10:45 | DX: Z12.31 Encounter for screening mammogram for malignant neoplasm of breast (principal) ==